=== PATIENT | female | born 1995 | race Caucasian/White ===

== ENCOUNTER 2018-06-25 05:29 | Inpatient (IN) | payer BC, SELFPAY ==
--- NOTE | 2018-06-24 11:59 | PCM.LDHP ---
L&D History of Present Illness - General Date of Service: 06/25/18 Admit Problem/Dx: Admission Diagnosis/Problem Admission Diagnosis/Problem 06/24/18 11:46 Willow is a 22-year-old 3 para 2001 white female at 38-1/7 weeks gestational age on admission for elective repeat section. 06/24/18 11:48 Source of Information: Patient History Limitations: Reports: No Limitations - History of Present Illness Introduction:: Willow is a 22-year-old 3 para 2003 white female at 38-1/7 weeks gestational age on admission for elective repeat section. Previous section 2 was done for failure to progress and then repeat respectively. Has gestational diabetes and has been under less than optimal control. Her seizure repeat section, its risks, benefits, alternatives of care and follow-up were discussed in detail patient. She appears to understand and wishes to proceed. Consent is signed. ROPE WALKER history 3 para 2001 FATUMA 07/07/2018 as set by an early ultrasound done on 12/10/2017. Is supported by 2 other ultrasounds done during on 02/17/2018 and 06/01/2018. course is been relatively unremarkable. Her last menstrual period was unknown. She had menarche at age 10. Frequency of menses is every 2-4 weeks. Not using any control to time conception. Past obstetric history includes the followin. Male born 12/28/2010 at 42 weeks gestational age of 26 hours of labor. 7 lbs. 7 oz.a section for failure to progresschild's name is Ander. He prepped 2. Female infant born 11/04/2001 1239 weeks gestational age 6 lbs. 4 oz.repeat section done electively. Child's name is Catina course. Patient's seen for her first visit on 12/10/2017 at 10-1 /7 weeks gestational age. She was seen on a regular basis throughout the . She had normal fundal height growth. Her weight gain was minimal and patient essentially stayed the same start at 218 pounds and ending at 214 pounds. Fundal height growth was appropriate. Patient had an abnormal one-hour GTT and was diagnosed with gestational diabetes. She was started on glyburide to bring blood sugars down further. She has stopped smoking during the course of desires repeat section. She plans to breast-feed. She has unstable social situation. After testing shows blood to be A+ with a negative amateur screening. Her hemoglobin is 12.8 and platelets 250,000. She is rubella immune. RPR is nonreactive. Hepatitis surface antigen and HIV assays are both negative. Chlamydia and gonorrhea assays both negative. Second trimester labs showed hemoglobin 11.8 g deciliter and platelets 231,000. One-hour GTT was elevated at 136. 3 hour glucose tolerance test showed a blood sugar 98. 100 glucose was 202. To her glucose was 216. 4 hour glucose 166. This gave diagnosis of gestational diabetes. Patient start a diabetic diet and blood sugar evaluation. Blood sugars did not normalize and fasting blood sugars remained elevated. She was then started on glyburide 2.5 mg by mouth every at bedtime. With these patient has had variable results. She is not been consistent but admits that she is not following diet closely. Group B strep screen was positive. Allergies Peanuts which cause hives. Medications: 1. Glyburide 2.5 mg by mouth daily at bedtime 2. Sertraline 50 mg by mouth every day. 3. vitamins daily Past medical history: 1. Allergy to peanuts 2. depression Past surgical history: 1. 2 in 2008 and 2011. 2. Reconstructed eardrum surgery left ear 2014 3. Cholecystectomy 2009 Family history: Mother is alive and well. Father is alive age 50 with heart disease, heart attack and surgery. 3 sisters alive and well. One sister used IVF to conceive. There is no family history of cancer, related issues , bleeding or blood clotting problems. Social history. Patient is single. She works at [employer]. Significant other's [employer]. She does not use any significant most alcohol, drugs or tobacco. She did smoke early in the . Review of systems: In general patient has no complaints. Baby has been active Skin: Negative Lungs: No infectious symptoms or shortness of breath Cardiovascular: No chest pain or exercise intolerance Breasts: No lumps, changes in size, pain, dimpling, discharge or axillary or supraclavicular concerns. GI: Negative : Negative Musculoskeletal: Negative Neurological: Negative In general the patient is well-developed, well-nourished, pleasant female of stated age in no acute distress. Skin is warm dry without lesions. HEENT, neck and back within normal limits. Lungs are clear with good breath sounds in all lung coburn. Cardiovascular exam shows regular and rhythm without murmurs. Abdomen is flat, soft, nontender without masses or organomegaly. Positive bowel sounds are noted. No inguinal lymphadenopathy or hernias are noted. Genital gravid with fundal height consistent with dates. Extremities and neurological exam are grossly within normal limits. - Related Data Allergies/Adverse Reactions: Allergies Allergy/AdvReac Type Severity Reaction Status Date / Time metronidazole Allergy Rash Verified 05/06/16 04:02 Home Medications: Home Meds Prednisone [IMW: predniSONE] 60 mg PO WITHBREAKFAST #15 tab 05/05/16 [Rx] Acetaminophen [Tylenol] 650 mg PO ONCALL PRN 05/06/16 [History] EPINEPHrine [Adrenaclick] 0.3 mg IJ ASDIRECTED PRN #1 pack 05/06/16 [Rx] diphenhydrAMINE [Benadryl] 50 mg PO ONCALL PRN 05/06/16 [History] Past Medical History HEENT History: Reports: Impaired Vision Other HEENT History: wears contacts Gastrointestinal History: Reports: Cholelithiasis Genitourinary History: Reports: UTI, Recurrent ROPE WALKER History: Reports: Endocrine/Metabolic History: Reports: Obesity/BMI 30+ Hematologic History: Reports: Anemia, Iron Deficiency Other Hematologic History: in . - Past Surgical History HEENT Surgical History: Reports: Other (See Below) Female Surgical History: Reports: Section Social & Family History - Caffeine Use Caffeine Use: Reports: Coffee, Energy Drinks, Soda, Tea - Living Situation & Occupation Living situation: Reports: Single, Alone Occupation: Employed H&P Review of Systems - Review of Systems: Review Of Systems: See Below L&D Exam - Exam Exam: See Below Problem List Initiated/Reviewed/Updated: Yes Assessment/Plan Comment:: 1. 38-1/7 week intrauterine , admitted for elective repeat section and 2. Gestational diabetes under less than optimal control 3. Group B strep positive status. 4. RPR nonreactive 5. Patient plans to breast-feed. Plan: 1. Repeat lower uterine segment transverse section through Pfannenstiel skin incisionprocedure, risks, benefits, returns of care and follow-up discussed with the patient in detail. She appears understand and wishes to proceed. All 2. DVT prophylaxis with SCDs 3. Infection prophylaxis with Ancef 2 g IV preop. 4. Routine preoperative labs consistent CBC, type and screen, urinalysis 5. Support breast-feeding.
[~2018-06-25 05:29] MED LIST: Sodium Chloride 0.9% 10 ML Syringe FLUSH PRN
[2018-06-25] MEDS ORDERED: Lactated Ringers 1,000 ML IV SCH (06:00)
[2018-06-25] MEDS ORDERED: Bupivacaine 0.75%/D5W 2 ML Amp ONE (06:20)
[2018-06-25] MEDS ORDERED: Phenylephrine/Normal Saline 100 MCG/ML 10 ML Syringe ONE (06:20)
[2018-06-25] MEDS ORDERED: Ondansetron 4 MG/2 ML SDV ONE (06:20)
[2018-06-25] MEDS ORDERED: Lactated Ringers 2,000 ML ONE (06:20)
[2018-06-25] MEDS ORDERED: Lidocaine 1% 4 ML ONE (06:20)
[2018-06-25] MEDS ORDERED: Oxytocin 10 Units/1 ML SDV ONE (06:20)
[2018-06-25] MEDS ORDERED: ceFAZolin 1 GM Vial ONE (06:20)
[2018-06-25] MEDS ORDERED: Ketorolac 30 MG/ML SDV ONE (06:20)
[2018-06-25] MEDS ORDERED: Morphine PF 10 MG/10 ML SDV ONE (06:21)
[2018-06-25] MEDS ORDERED: Citric Acid/Sodium Citrate Solution 30 ML Cup PO ONE (06:30)
[2018-06-25] MEDS ORDERED: Metoclopramide 10 MG/2 ML SDV IVPUSH ONE (06:30)
[2018-06-25] MEDS ORDERED: ceFAZolin 2 GM in Premix Bag 1 BAG IV ONE (06:30)
--- NOTE | 2018-06-25 06:43 | PCM.PREANE ---
Preanesthetic Assessment - Anesthesia/Transfusion/Family Hx Anesthesia History: Prior Anesthesia Without Reaction Family History of Anesthesia Reaction: No Transfusion History: No Prior Transfusion(s) Intubation History: Unknown - Review of Systems General: No Symptoms Pulmonary: No Symptoms Cardiovascular: No Symptoms Gastrointestinal: No Symptoms (GERD), Constipation Neurological: No Symptoms Other: Reports: Diabetes (Gestational DM: am blood sugar=90), Depression, Anxiety - Physical Assessment NPO Status Date: 06/25/18 NPO Status Time: 02:00 (water) Pulse: 80 O2 Sat by Pulse Oximetry: 98 Respiratory Rate: 16 Blood Pressure: 113/64 Temperature: 36.5 C Vital Signs: Last Vital Signs Temp 36.5 C 06/25/18 05:45 Pulse 80 06/25/18 05:45 Resp 16 06/25/18 05:45 BP 113/64 06/25/18 05:45 Pulse Ox 98 06/25/18 05:45 Height: 1.6 m Weight: 99.201 kg ASA Class: 2 Mental Status: Alert & Oriented x3 Airway Class: Mallampati = 2 Dentition: Reports: Normal Dentition, Caries Thyro-Mental Finger Breadths: 3 Mouth Opening Finger Breadths: 3 ROM/Head Extension: Full Lungs: Clear to Auscultation, Normal Respiratory Effort Cardiovascular: Regular Rate, Regular Rhythm, No Murmurs - Lab Values: Laboratory Last Values WBC 7.68 K/mm3 (3.98-10.04) 06/24/18 14:35 RBC 4.46 M/mm3 (3.98-5.22) 06/24/18 14:35 Hgb 12.6 gm/L (11.2-15.7) 06/24/18 14:35 Hct 38.7 % (34.1-44.9) 06/24/18 14:35 MCV 86.8 fl (79.4-94.8) 06/24/18 14:35 MCH 28.3 pg (25.6-32.2) 06/24/18 14:35 MCHC 32.6 g/dl (32.2-35.5) 06/24/18 14:35 RDW Std Deviation 44.0 fL (36.4-46.3) 06/24/18 14:35 Plt Count 193 K/mm3 (182-369) 06/24/18 14:35 MPV 10.7 fl (9.4-12.3) 06/24/18 14:35 Neut % (Auto) 65.7 % (34.0-71.1) 06/24/18 14:35 Lymph % (Auto) 27.7 % (19.3-51.7) 06/24/18 14:35 Brooks % (Auto) 6.0 % (4.7-12.5) 06/24/18 14:35 Eos % (Auto) 0.4 (0.7-5.8) L 06/24/18 14:35 Baso % (Auto) 0.1 % (0.1-1.2) 06/24/18 14:35 Neut # (Auto) 5.04 K/mm3 (1.56-6.13) 06/24/18 14:35 Lymph # (Auto) 2.13 K/mm3 (1.18-3.74) 06/24/18 14:35 Brooks # (Auto) 0.46 K/mm3 (0.24-0.36) H 06/24/18 14:35 Eos # (Auto) 0.03 K/mm3 (0.04-0.36) L 06/24/18 14:35 Baso # (Auto) 0.01 K/mm3 (0.01-0.08) 06/24/18 14:35 Blood Type A POSITIVE 06/24/18 14:35 Gel Antibody Screen Negative 06/24/18 14:35 - Allergies Allergies/Adverse Reactions: Allergies Allergy/AdvReac Type Severity Reaction Status Date / Time peanut Allergy Hives Verified 06/25/18 00:44 - Anesthesia Plan Pre-Op Medication Ordered: None, Other (bicitra and reglan.) - Acknowledgements Anesthesia Type Planned: Spinal Pt an Appropriate Candidate for the Planned Anesthesia: Yes Alternatives and Risks of Anesthesia Discussed w Pt/Guardian: Yes Pt/Guardian Understands and Agrees with Anesthesia Plan: Yes PreAnesthesia Questionnaire HEENT History: Reports: Impaired Vision Other HEENT History: wears contacts Gastrointestinal History: Reports: GERD Genitourinary History: Reports: UTI, Recurrent BAGGAGE INSPECTOR History: Reports: Psychiatric History: Reports: Anxiety, Depression Endocrine/Metabolic History: Reports: Diabetes, Gestational, Obesity/BMI 30+ Hematologic History: Reports: Anemia, Iron Deficiency Other Hematologic History: in . - Past Surgical History HEENT Surgical History: Reports: Other (See Below) Other HEENT Surgeries/Procedures: left ear drum reconstruction GI Surgical History: Reports: Cholecystectomy Female Surgical History: Reports: Section - SUBSTANCE USE Smoking Status *Q: Current Every Day Smoker Tobacco Use Within Last Twelve Months: Cigarettes Recreational Drug Use History: No - HOME MEDS Home Medications: Home Meds Pnv No.122/Iron/Folic Acid [ Multi Tablet] 1 each PO DAILY 06/25/18 [ History] Sertraline [Zoloft] 50 mg PO DAILY 06/25/18 [History] glyBURIDE [Glyburide] 2.5 mg PO BEDTIME 06/25/18 [History] - CURRENT (IN HOUSE) MEDS Current Meds: Current Medications Cefazolin Sodium/Dextrose 2 gm (/ Premix) 50 mls @ 100 mls/hr IV ONETIME ONE Stop: 06/25/18 06:59 Lactated Ringer's (Ringers, Lactated) 1,000 mls @ 125 mls/hr IV ASDIRECTED [facility] Last Admin: 06/25/18 06:20 Dose: 999 mls/hr Oxytocin/Lactated Ringer's (Pitocin In Lr 10 Units/1,000 Ml) 10 unit in 1,000 mls @ 100 mls/hr IV ASDIRECTED SHMUEL Sodium Chloride (Saline Flush) 10 ml FLUSH ASDIRECTED PRN PRN Reason: Keep Vein Open Discontinued Medications Bupivacaine HCl/Dextrose (Marcaine 0.75% Spinal) Confirm Administered Dose 2 ml .ROUTE .STK-MED ONE Stop: 06/25/18 06:21 Cefazolin Sodium (Ancef) Confirm Administered Dose 2 gm .ROUTE .STK-MED ONE Stop: 06/25/18 06:21 Citric Acid/Sodium Citrate (Bicitra Solution) 30 ml PO ONETIME ONE Stop: 06/25/18 06:31 Lidocaine HCl (Xylocaine-Mpf 1%) Confirm Administered Dose 4 mls @ as directed .ROUTE .STK-MED ONE Stop: 06/25/18 06:21 Lactated Ringer's (Ringers, Lactated) Confirm Administered Dose 2,000 mls @ as directed .ROUTE .STK-MED ONE Stop: 06/25/18 06:21 Ketorolac Tromethamine (Toradol) Confirm Administered Dose 30 mg .ROUTE .STK- MED ONE Stop: 06/25/18 06:21 Metoclopramide HCl (Reglan) 10 mg IVPUSH ONETIME ONE Stop: 06/25/18 06:31 Morphine Sulfate (Duramorph Pf) Confirm Administered Dose 10 mg .ROUTE .STK-MED ONE Stop: 06/25/18 06:22 Ondansetron HCl (Zofran) Confirm Administered Dose 4 mg .ROUTE .STK-MED ONE Stop: 06/25/18 06:21 Oxytocin (Pitocin) Confirm Administered Dose 20 unit .ROUTE .STK-MED ONE Stop: 06/25/18 06:21 Phenylephrine HCl (Phenylephrine In Ns 100 Mcg/Ml) Confirm Administered Dose 1 mg .ROUTE .STK-MED ONE Stop: 06/25/18 06:21
[2018-06-25] MEDS ORDERED: Bupivacaine 0.5% 30 ML SDV ONE (06:54)
[2018-06-25] MEDS ORDERED: Oxytocin/Lactated Ringers 10 UNIT/1,000 ML BAG IV SCH (07:00)
[2018-06-25] MEDS ORDERED: Lactated Ringers 1,000 ML ONE (07:48)
[2018-06-25] MEDS ORDERED: diphenhydrAMINE 50 MG/ML SDV IVPUSH PRN ×2 (07:49→10:15)
[2018-06-25] MEDS ORDERED: Ondansetron 4 MG/2 ML SDV IVPUSH PRN (07:49)
[2018-06-25] MEDS ORDERED: HYDROmorphone 0.5 MG/0.5 ML Syringe IVPUSH PRN (07:49)
[2018-06-25] MEDS ORDERED: Haloperidol Lactate 5 MG/ML SDV IVPUSH PRN (07:49)
[2018-06-25] MEDS ORDERED: fentaNYL 100 MCG/2 ML SDV IVPUSH PRN (07:49)
[2018-06-25] MEDS ORDERED: ePHEDrine 50 MG/ML SDV IVPUSH PRN ×2 (07:49→10:15)
[2018-06-25] MEDS ORDERED: Phenylephrine 1 MG in Sodium Chloride 0.9% 10 ML IV SCH (08:00)
--- NOTE | 2018-06-25 08:52 | PCM.POSTAN ---
POST ANESTHESIA ASSESSMENT - MENTAL STATUS Mental Status: Alert - VITAL SIGNS Pulse Rate: 75 SaO2: 99 Resp Rate: 19 Blood Pressure: 111/52 Temperature: 36.4 C - RESPIRATORY Respiratory Status: Respiratory Rate WNL, Airway Patent, O2 Saturation Stable, Supplemental Oxygen - CARDIOVASCULAR CV Status: Pulse Rate WNL, Blood Pressure Stable - GASTROINTESTINAL GI Status: No Symptoms - POST OP HYDRATION Hydration Status: Adequate & Stable
--- NOTE | 2018-06-25 09:10 | PCM.OPNOTE ---
- General Post-Op/Procedure Note Date of Surgery/Procedure: 06/25/18 Operative Procedure(s): Repeat lower uterine segment transverse section through Pfannenstiel skin incision Findings: Moderate anterior abdominal wall scarring. Omental scarring to the anterior abdominal wall. Ovaries tubes and uterus otherwise unremarkable. Lower uterine segment was very thin at 2-3 mm. Clear amniotic fluid. Baby in a cephalic presentation. Female weighing 6 lbs. 12 oz. with Apgars of 3, 6 and 8. Pre Op Diagnosis: 38 week intrauterine , history of gestational diabetessuboptimally controlled, history of previous section desire for repeat section Post-Op Diagnosis: Same with delivery of viable 6 lbs. 12 oz. female infant with Apgars of 3, 6 and 9 at 0805 hrs. on 06/25/2018 Anesthesia Technique: Spinal Other Anesthesia Type: Marcaine 0.5%20 mL totallocal Primary Surgeon: Tom Hanna Secondary Surgeon: Cirilo Levy Anesthesia Provider: Keiry Griffin Nurse Prn: Isaías Diallo Reason Nurse Prn Was Necessary: Retraction, assistance, patient safety, quality care Role of Nurse Prn: Same Fluid Replacement, Intraop: 1,600 Output, Urine Amount: 275 EBL in mLs: 500 Drain/Tube Comments:: Indwelling bladder catheter Complications: None Condition: Good Free Text/Narrative:: Surgery duration: 45 minutes Procedure: The patient is appropriately consented. Patient was transferred to the room and placed in a sitting position. Spinal anesthesia was administered. After confirmation of adequate anesthesia patient was placed in a supine position with a wedge under her right side to facilitate left lateral positioning. The patient was prepped and draped in usual fashion after Garcia catheter was already placed . The anesthetic was checked and found to be adequate. 20 mL of Marcaine 0.5% was injected locally in the Pfannenstiel incision site. The Pfannenstiel skin incision was then made and carried down through skin, subcutaneous and fascial layers. The fascia was then undermined superiorly and inferiorly to allow for adequate operating room. The recti muscles midline and preperitoneal fat was bluntly dissected. Peritoneal cavity was entered longitudinally. patient is noted to have omental adhesions to the anterior abdominal wall. There is taken down with clamping, cutting and free tie ligation. The vesicouterine peritoneum was then incised transversely and bladder flap was developed. Myometrium was incised transversely to the level of the amniotic sac. This incision was extended bilaterally in a blunt fashion. The amniotic sac was then ruptured resulting in clear amniotic fluid. A hand is placed in the low uterine segment and the baby' s head was brought forth through the incision. The baby was completely delivered using fundal pressure in a routine fashion. macular extraction assistance with a Kiwi vacuum extractor was used to facilitate delivery of the baby's head. The nose and mouth were bulb suctioned. Baby's cord was clamped x2 cut and baby was handed off to attending reinforcing steel placer Cora . Placenta was expressed after cord blood was obtained. Uterus was then exteriorized to allow for easier closure. The cervix was assessed and found to be dilated adequately to allow egress of blood. The uterus was closed in 2 layers. The first layer a running locked suture of 0 Monocryl, the second layer a running locked vertical mattress suture of 0 Monocryl. [id number] suture was placed at mid incision to control 1 bleeder. Hemostasis confirmed at this time. Sponge instrument needle counts are correct. The uterus was returned to the abdominal cavity and lateral gutters were cleared of blood. Once again sponge needle counts are correct. The anterior abdominal wall was closed with a #1 PDS suture from angle to angle. The subcutaneous area was found to be free of any bleeders. Skin was closed with a running subcuticular stitch of 3-0 Monocryl in a vertical mattress suture fashion using a Abhishek needle. Prineo mesh/glue was then applied to further approximate the incision. It should be noted that patient received 2 g of Ancef preoperatively for infection prophylaxis and had Pitocin infused after delivery of the placenta to facilitate uterine contraction. She also had sequential compression stockings in place for DVT prophylaxis. Patient was discharged from the operating room in satisfactory condition.
[2018-06-25] MEDS ORDERED: Dextrose 5%-Lactated Ringers 1,000 ML IV SCH (10:15)
[2018-06-25] MEDS ORDERED: Naloxone 0.4 MG/ML SDV IVPUSH PRN (10:15)
[2018-06-25] MEDS ORDERED: Lanolin 100% Cream 7 GM Tube TOP PRN (10:15)
[2018-06-25] MEDS ORDERED: Ondansetron 4 MG/2 ML SDV IV PRN (10:15)
[2018-06-25] MEDS: Sertraline 50 MG Tab PO SCH (11:23)
[2018-06-25] MEDS: Ibuprofen 800 MG Tab PO SCH ×2 (12:10→20:27)
[2018-06-25] MEDS: Acetaminophen/oxyCODONE 325-5 MG Tab PO PRN (14:36)
[2018-06-26] MEDS: Ibuprofen 800 MG Tab PO SCH ×3 (04:14→20:15)
--- NOTE | 2018-06-26 08:12 | PCM.PNPP ---
- General Info Date of Service: 06/26/18 Subjective Update: POD1 from [facility]. Doing well. Ambulating, voiding and tolerating po's. Minimal lochia. Functional Status: Reports: Pain Controlled - Review of Systems General: Reports: No Symptoms HEENT: Reports: No Symptoms Pulmonary: Reports: No Symptoms Cardiovascular: Reports: No Symptoms Gastrointestinal: Reports: No Symptoms Genitourinary: Reports: No Symptoms Musculoskeletal: Reports: No Symptoms Skin: Reports: No Symptoms Neurological: Reports: No Symptoms Psychiatric: Reports: No Symptoms - General Info Date of Service: 06/26/18 - Patient Data Vital Signs - Most Recent: Last Vital Signs Temp 36.2 C 06/26/18 04:13 Pulse 89 06/26/18 04:13 Resp 20 06/26/18 07:00 BP 111/66 06/26/18 04:13 Pulse Ox 99 06/26/18 07:00 Weight - Most Recent: 99.201 kg I&O - Last 24 Hours: Intake & Output 06/25/18 06/26/18 06/26/18 22:59 06:59 14:59 Output Total 1525 800 Balance -1525 -800 Lab Results - Last 24 Hours: Laboratory Results - last 24 hr 06/24/18 06/25/18 06/26/18 Range/Units 14:35 09:02 06:00 WBC 7.42 (3.98-10.04) K/mm3 RBC 3.82 L (3.98-5.22) M/mm3 Hgb 10.7 L (11.2-15.7) gm/L Hct 33.4 L (34.1-44.9) % MCV 87.4 (79.4-94.8) fl MCH 28.0 (25.6-32.2) pg MCHC 32.0 L (32.2-35.5) g/dl RDW Std Deviation 44.1 (36.4-46.3) fL Plt Count 167 L (182-369) K/mm3 MPV 10.7 (9.4-12.3) fl Neut % (Auto) 72.0 H (34.0-71.1) % Lymph % (Auto) 18.9 L (19.3-51.7) % [place] % (Auto) 8.5 (4.7-12.5) % Eos % (Auto) 0.4 L (0.7-5.8) Baso % (Auto) 0.1 (0.1-1.2) % Neut # (Auto) 5.34 (1.56-6.13) K/mm3 Lymph # (Auto) 1.40 (1.18-3.74) K/mm3 [place] # (Auto) 0.63 H (0.24-0.36) K/mm3 Eos # (Auto) 0.03 L (0.04-0.36) K/mm3 Baso # (Auto) 0.01 (0.01-0.08) K/mm3 POC Glucose 94 (70-105) mg/dL RPR Non-reactive (NONREACTIVE) Med Orders - Current: Current Medications Diphenhydramine HCl (Benadryl) 25 mg IVPUSH Q6H PRN PRN Reason: Itching or Nausea Docusate Sodium (Colace) 100 mg PO Q12H PRN PRN Reason: Constipation Emollient Ointment (Lansinoh Hpa) 0 gm TOP ASDIRECTED PRN PRN Reason: Sore Nipples Ephedrine Sulfate (Ephedrine Sulfate) 5 mg IVPUSH SEECOMMENT PRN PRN Reason: Other Ibuprofen (Motrin) 800 mg PO Q8H [facility] Last Admin: 06/26/18 04:14 Dose: 800 mg Naloxone HCl (Narcan) 0.1 mg IVPUSH SEECOMMENT PRN PRN Reason: Respiratory Depression Ondansetron HCl (Zofran) 4 mg IV Q4H PRN PRN Reason: Nausea/Vomiting Oxycodone/Acetaminophen (Percocet 325-5 Mg) 2 tab PO Q4H PRN PRN Reason: Pain (moderate 4-6) Last Admin: 06/25/18 14:36 Dose: 2 tab Sertraline HCl (Zoloft) 50 mg PO DAILY [facility] Last Admin: 06/25/18 11:23 Dose: Not Given Discontinued Medications Bupivacaine HCl (Marcaine 0.5%) Confirm Administered Dose 30 ml .ROUTE .STK-MED ONE Stop: 06/25/18 06:55 Last Admin: 06/25/18 07:55 Dose: 20 ml Bupivacaine HCl/Dextrose (Marcaine 0.75% Spinal) Confirm Administered Dose 2 ml .ROUTE .STK-MED ONE Stop: 06/25/18 06:21 Cefazolin Sodium (Ancef) Confirm Administered Dose 2 gm .ROUTE .STK-MED ONE Stop: 06/25/18 06:21 Citric Acid/Sodium Citrate (Bicitra Solution) 30 ml PO ONETIME ONE Stop: 06/25/18 06:31 Last Admin: 06/25/18 06:54 Dose: 30 ml Diphenhydramine HCl (Benadryl) 25 mg IVPUSH Q6H PRN PRN Reason: pruritis Stop: 06/25/18 11:00 Ephedrine Sulfate (Ephedrine Sulfate) 5 mg IVPUSH ASDIRECTED PRN PRN Reason: Hypotension Stop: 06/25/18 11:00 Fentanyl (Sublimaze) 50 mcg IVPUSH Q5M PRN PRN Reason: Pain Stop: 06/25/18 11:00 Haloperidol Lactate (Haldol) 1 mg IVPUSH ONETIME PRN PRN Reason: PERSISTENT NAUSEA Stop: 06/25/18 11:00 Hydromorphone HCl (Dilaudid) 0.5 mg IVPUSH Q15M PRN PRN Reason: Pain (severe 7-10) Stop: 06/25/18 11:00 Cefazolin Sodium/Dextrose 2 gm (/ Premix) 50 mls @ 100 mls/hr IV ONETIME ONE Stop: 06/25/18 06:59 Last Admin: 06/25/18 17:38 Dose: Not Given Lactated Ringer's (Ringers, Lactated) 1,000 mls @ 125 mls/hr IV ASDIRECTED [facility] Last Admin: 06/25/18 06:20 Dose: 999 mls/hr Oxytocin/Lactated Ringer's (Pitocin In Lr 10 Units/1,000 Ml) 10 unit in 1,000 mls @ 100 mls/hr IV ASDIRECTED [facility] Lidocaine HCl (Xylocaine-Mpf 1%) Confirm Administered Dose 4 mls @ as directed .ROUTE .STK-MED ONE Stop: 06/25/18 06:21 Lactated Ringer's (Ringers, Lactated) Confirm Administered Dose 2,000 mls @ as directed .ROUTE .STK-MED ONE Stop: 06/25/18 06:21 Lactated Ringer's (Ringers, Lactated) Confirm Administered Dose 1,000 mls @ as directed .ROUTE .STK-MED ONE Stop: 06/25/18 07:49 Phenylephrine HCl 1 mg/ Sodium (Chloride) 10.1 mls @ 1 mls/sec IV TITRATE SHMUEL; Protocol Stop: 06/25/18 11:00 Dextrose/Lactated Ringer's (Dextrose 5%-Lactated Ringers) 1,000 mls @ 125 mls/ hr IV ASDIRECTED SHMUEL Stop: 06/25/18 18:14 Ketorolac Tromethamine (Toradol) Confirm Administered Dose 30 mg .ROUTE .STK- MED ONE Stop: 06/25/18 06:21 Metoclopramide HCl (Reglan) 10 mg IVPUSH ONETIME ONE Stop: 06/25/18 06:31 Last Admin: 06/25/18 06:54 Dose: 10 mg Morphine Sulfate (Duramorph Pf) Confirm Administered Dose 10 mg .ROUTE .STK-MED ONE Stop: 06/25/18 06:22 Ondansetron HCl (Zofran) Confirm Administered Dose 4 mg .ROUTE .STK-MED ONE Stop: 06/25/18 06:21 Ondansetron HCl (Zofran) 4 mg IVPUSH ONETIME PRN PRN Reason: Nausea/Vomiting Stop: 06/25/18 11:00 Oxytocin (Pitocin) Confirm Administered Dose 20 unit .ROUTE .STK-MED ONE Stop: 06/25/18 06:21 Phenylephrine HCl (Phenylephrine In Ns 100 Mcg/Ml) Confirm Administered Dose 1 mg .ROUTE .STK-MED ONE Stop: 06/25/18 06:21 Sodium Chloride (Saline Flush) 10 ml FLUSH ASDIRECTED PRN PRN Reason: Keep Vein Open - Interaction Infant Disposition, : in Room with Family Support Person: Sister - Recovery Exam Fundal Tone: Firm Fundal Level: At Umbilicus Fundal Placement: Midline Lochia Amount: Small Lochia Color: Rubra/Red Perineum Description: Intact, Minimal Bruising/Swelling Episiotomy/Laceration: None Bladder Status: Indwelling Catheter in Place Urinary Elimination: Indwelling Catheter - Exam General: Alert, Oriented HEENT: Pupils Equal Neck: Supple Lungs: Clear to Auscultation, Normal Respiratory Effort Cardiovascular: Regular Rate, Regular Rhythm GI/Abdominal Exam: Normal Bowel Sounds, Soft, Non-Tender, No Organomegaly, No Distention, No Abnormal Bruit, No Mass, Pelvis Stable Extremities: Normal Inspection, Normal Range of Motion, Non-Tender, No Pedal Edema, Normal Capillary Refill Neurological: No New Focal Deficit Psy/Mental Status: Alert, Normal Affect, Normal Mood - Problem List Review Problem List Initiated/Reviewed/Updated: Yes - Plan Plan:: 1. 38-1/7 week intrauterine , s/p elective repeat section with 2. Gestational diabetes under less than optimal control 3. Group B strep positive status. 4. RPR nonreactive 5. Patient plans to breast-feed. Plan: 1. Routine postop care 2. Discussed 2 hour glucola at 6 weeks 3. CBC appropriate 4. Routine postoperative care 5. Support breast-feeding.
[2018-06-26] MEDS: Docusate Sodium 100 MG Cap PO PRN (09:30)
[2018-06-26] MEDS: Sertraline 50 MG Tab PO SCH (09:30)
--- NOTE | 2018-06-26 09:59 | PCM48HPAN ---
Post Anesthesia Note - EVALUATION WITHIN 48HRS OF ANESTHETIC Vital Signs in Normal Range: Yes Patient Participated in Evaluation: Yes Respiratory Function Stable: Yes Airway Patent: Yes Cardiovascular Function Stable: Yes Hydration Status Stable: Yes Pain Control Satisfactory: Yes Nausea and Vomiting Control Satisfactory: Yes Mental Status Recovered: Yes Pulse Rate: 89 Resp Rate: 20 Temperature: 36.2 C Blood Pressure: 111/66 - COMMENTS/OBSERVATIONS Free Text/Narrative:: no anesthesia complications noted
[2018-06-26] MEDS: Acetaminophen/oxyCODONE 325-5 MG Tab PO PRN ×3 (10:07→20:22)
--- NOTE | 2018-06-27 04:47 | PCM.DCSUM1 ---
Discharge Summary - Hospital Course Brief History: omi is a 22-year-old 3 para 2004 white female at 38-1/ 7 weeks gestational age on admission for elective repeat section. Previous section 2 was done for failure to progress and then repeat respectively. Has gestational diabetes and has been under less than optimal control. Admitted for repeat section Diagnosis: Stroke: No - Discharge Data Discharge Date: 06/27/18 Discharge Disposition: Home, Self-Care 01 Condition: Good - Patient Summary/Data Operative Procedure(s) Performed: Repeat lower uterine segment transverse section through Pfannenstiel skin incision Hospital Course: Repeat c/s. Uncomplicated pp course. viable 6 lbs. 12 oz. female infant with Apgars of 3, 6 and 9 at 0805 hrs. on 06/25/2018 - Patient Instructions Diet: Usual Diet as Tolerated Activity: No Strenuous Activities Driving: Do Not Drive Showering/Bathing: May Shower Wound/Incision Care: Keep Operative Site/Wound Site Clean and Dry Notify Provider of: Fever, Increased Pain, Swelling and Redness, Drainage, Nausea and/or Vomiting - Discharge Plan *PRESCRIPTION DRUG MONITORING PROGRAM REVIEWED*: No *COPY OF PRESCRIPTION DRUG MONITORING REPORT IN PATIENT SHAISTA: Not Applicable Home Medications: Home Meds Pnv No.122/Iron/Folic Acid [ Multi Tablet] 1 each PO DAILY 06/25/18 [ History] Sertraline [Zoloft] 50 mg PO DAILY 06/25/18 [History] glyBURIDE [Glyburide] 2.5 mg PO BEDTIME 06/25/18 [History] Referrals: Tom Hanna MD [Primary Care Provider] - (2 weeks) - Discharge Summary/Plan Comment DC Time >30 min.: No - General Info Date of Service: 06/27/18 Subjective Update: Doing well, expressed desire for discharge on POD2 - Review of Systems General: Reports: No Symptoms HEENT: Reports: No Symptoms Pulmonary: Reports: No Symptoms Cardiovascular: Reports: No Symptoms Gastrointestinal: Reports: No Symptoms Genitourinary: Reports: No Symptoms Musculoskeletal: Reports: No Symptoms Skin: Reports: No Symptoms Neurological: Reports: No Symptoms Psychiatric: Reports: No Symptoms - Patient Data Vitals - Most Recent: Last Vital Signs Temp 37.1 C 06/27/18 02:16 Pulse 64 06/27/18 02:16 Resp 16 06/27/18 02:16 BP 113/81 06/27/18 02:16 Pulse Ox 98 06/27/18 02:16 Weight - Most Recent: 99.201 kg I&O - Last 24 hours: Intake & Output 06/26/18 06/26/18 06/27/18 14:59 22:59 06:59 Intake Total 300 850 850 Output Total 700 650 Balance -400 200 850 Lab Results - Last 24 hrs: Laboratory Results - last 24 hr 06/26/18 Range/Units 06:00 WBC 7.42 (3.98-10.04) K/mm3 RBC 3.82 L (3.98-5.22) M/mm3 Hgb 10.7 L (11.2-15.7) gm/L Hct 33.4 L (34.1-44.9) % MCV 87.4 (79.4-94.8) fl MCH 28.0 (25.6-32.2) pg MCHC 32.0 L (32.2-35.5) g/dl RDW Std Deviation 44.1 (36.4-46.3) fL Plt Count 167 L (182-369) K/mm3 MPV 10.7 (9.4-12.3) fl Neut % (Auto) 72.0 H (34.0-71.1) % Lymph % (Auto) 18.9 L (19.3-51.7) % [place] % (Auto) 8.5 (4.7-12.5) % Eos % (Auto) 0.4 L (0.7-5.8) Baso % (Auto) 0.1 (0.1-1.2) % Neut # (Auto) 5.34 (1.56-6.13) K/mm3 Lymph # (Auto) 1.40 (1.18-3.74) K/mm3 [place] # (Auto) 0.63 H (0.24-0.36) K/mm3 Eos # (Auto) 0.03 L (0.04-0.36) K/mm3 Baso # (Auto) 0.01 (0.01-0.08) K/mm3 Med Orders - Current: Current Medications Diphenhydramine HCl (Benadryl) 25 mg IVPUSH Q6H PRN PRN Reason: Itching or Nausea Docusate Sodium (Colace) 100 mg PO Q12H PRN PRN Reason: Constipation Last Admin: 06/26/18 09:30 Dose: 100 mg Emollient Ointment (Lansinoh Hpa) 0 gm TOP ASDIRECTED PRN PRN Reason: Sore Nipples Ephedrine Sulfate (Ephedrine Sulfate) 5 mg IVPUSH SEECOMMENT PRN PRN Reason: Other Ibuprofen (Motrin) 800 mg PO Q8H [facility] Last Admin: 06/26/18 20:15 Dose: 800 mg Naloxone HCl (Narcan) 0.1 mg IVPUSH SEECOMMENT PRN PRN Reason: Respiratory Depression Ondansetron HCl (Zofran) 4 mg IV Q4H PRN PRN Reason: Nausea/Vomiting Oxycodone/Acetaminophen (Percocet 325-5 Mg) 2 tab PO Q4H PRN PRN Reason: Pain (moderate 4-6) Last Admin: 06/26/18 20:22 Dose: 2 tab Sertraline HCl (Zoloft) 50 mg PO DAILY [facility] Last Admin: 06/26/18 09:30 Dose: 50 mg Discontinued Medications Bupivacaine HCl (Marcaine 0.5%) Confirm Administered Dose 30 ml .ROUTE .STK-MED ONE Stop: 06/25/18 06:55 Last Admin: 06/25/18 07:55 Dose: 20 ml Bupivacaine HCl/Dextrose (Marcaine 0.75% Spinal) Confirm Administered Dose 2 ml .ROUTE .STK-MED ONE Stop: 06/25/18 06:21 Cefazolin Sodium (Ancef) Confirm Administered Dose 2 gm .ROUTE .STK-MED ONE Stop: 06/25/18 06:21 Citric Acid/Sodium Citrate (Bicitra Solution) 30 ml PO ONETIME ONE Stop: 06/25/18 06:31 Last Admin: 06/25/18 06:54 Dose: 30 ml Diphenhydramine HCl (Benadryl) 25 mg IVPUSH Q6H PRN PRN Reason: pruritis Stop: 06/25/18 11:00 Ephedrine Sulfate (Ephedrine Sulfate) 5 mg IVPUSH ASDIRECTED PRN PRN Reason: Hypotension Stop: 06/25/18 11:00 Fentanyl (Sublimaze) 50 mcg IVPUSH Q5M PRN PRN Reason: Pain Stop: 06/25/18 11:00 Haloperidol Lactate (Haldol) 1 mg IVPUSH ONETIME PRN PRN Reason: PERSISTENT NAUSEA Stop: 06/25/18 11:00 Hydromorphone HCl (Dilaudid) 0.5 mg IVPUSH Q15M PRN PRN Reason: Pain (severe 7-10) Stop: 06/25/18 11:00 Cefazolin Sodium/Dextrose 2 gm (/ Premix) 50 mls @ 100 mls/hr IV ONETIME ONE Stop: 06/25/18 06:59 Last Admin: 06/25/18 17:38 Dose: Not Given Lactated Ringer's (Ringers, Lactated) 1,000 mls @ 125 mls/hr IV ASDIRECTED [facility] Last Admin: 06/25/18 06:20 Dose: 999 mls/hr Oxytocin/Lactated Ringer's (Pitocin In Lr 10 Units/1,000 Ml) 10 unit in 1,000 mls @ 100 mls/hr IV ASDIRECTED [facility] Lidocaine HCl (Xylocaine-Mpf 1%) Confirm Administered Dose 4 mls @ as directed .ROUTE .STK-MED ONE Stop: 06/25/18 06:21 Lactated Ringer's (Ringers, Lactated) Confirm Administered Dose 2,000 mls @ as directed .ROUTE .STK-MED ONE Stop: 06/25/18 06:21 Lactated Ringer's (Ringers, Lactated) Confirm Administered Dose 1,000 mls @ as directed .ROUTE .STK-MED ONE Stop: 06/25/18 07:49 Phenylephrine HCl 1 mg/ Sodium (Chloride) 10.1 mls @ 1 mls/sec IV TITRATE SHMUEL; Protocol Stop: 06/25/18 11:00 Dextrose/Lactated Ringer's (Dextrose 5%-Lactated Ringers) 1,000 mls @ 125 mls/ hr IV ASDIRECTED SHMU[facility] Stop: 06/25/18 18:14 Ketorolac Tromethamine (Toradol) Confirm Administered Dose 30 mg .ROUTE .STK- MED ONE Stop: 06/25/18 06:21 Metoclopramide HCl (Reglan) 10 mg IVPUSH ONETIME ONE Stop: 06/25/18 06:31 Last Admin: 06/25/18 06:54 Dose: 10 mg Morphine Sulfate (Duramorph Pf) Confirm Administered Dose 10 mg .ROUTE .STK-MED ONE Stop: 06/25/18 06:22 Ondansetron HCl (Zofran) Confirm Administered Dose 4 mg .ROUTE .STK-MED ONE Stop: 06/25/18 06:21 Ondansetron HCl (Zofran) 4 mg IVPUSH ONETIME PRN PRN Reason: Nausea/Vomiting Stop: 06/25/18 11:00 Oxytocin (Pitocin) Confirm Administered Dose 20 unit .ROUTE .STK-MED ONE Stop: 06/25/18 06:21 Phenylephrine HCl (Phenylephrine In Ns 100 Mcg/Ml) Confirm Administered Dose 1 mg .ROUTE .STK-MED ONE Stop: 06/25/18 06:21 Sodium Chloride (Saline Flush) 10 ml FLUSH ASDIRECTED PRN PRN Reason: Keep Vein Open - Exam General: Reports: Alert, Oriented HEENT: Reports: Pupils Equal, Pupils Reactive, EOMI, Mucous Membr. Moist/[place] Neck: Reports: Supple Lungs: Reports: Clear to Auscultation, Normal Respiratory Effort Cardiovascular: Reports: Regular Rate, Regular Rhythm GI/Abdominal Exam: Normal Bowel Sounds, Soft, Non-Tender, No Organomegaly, No Distention, No Abnormal Bruit, No Mass, Pelvis Stable Back Exam: Reports: Normal Inspection, Full Range of Motion Extremities: Normal Inspection, Normal Range of Motion, Non-Tender, No Pedal Edema, Normal Capillary Refill Skin: Reports: Warm, Dry, Intact Wound/Incisions: Reports: Healing Well Neurological: Reports: No New Focal Deficit Psy/Mental Status: Reports: Alert, Normal Affect, Normal Mood
[2018-06-27] MEDS: Ibuprofen 800 MG Tab PO SCH ×2 (06:31→10:53)
[2018-06-27] MEDS: Acetaminophen/oxyCODONE 325-5 MG Tab PO PRN (08:38)
[2018-06-27] MEDS: Sertraline 50 MG Tab PO SCH (08:41)
[2018-06-27] MEDS: Docusate Sodium 100 MG Cap PO PRN (10:53)
[2018-06-27 10:57] VITALS: BP 131/85
== END 2018-06-27 11:15 | disposition home or self-care (01) | DRG 540 ==
LOC: JD.OB 05:29
PROVIDERS: ADMIT Obstetrics & Gynecology; ATTEND Obstetrics & Gynecology
PROC: 10D00Z1 Extraction of Products of Conception, Low, Open Approach (ICD-10-PCS; principal; 2018-06-25)
PROC: 6A550ZT Pheresis of Cord Blood Stem Cells, Single (ICD-10-PCS; principal; 2018-06-25)
DX: O34.211 Maternal care for low transverse scar from previous cesarean delivery (principal); N85.8 Other specified noninflammatory disorders of uterus; Z37.0 Single live birth; Z3A.38 38 weeks gestation of pregnancy; O24.425 Gestational diabetes mellitus in childbirth, controlled by oral hypoglycemic drugs; O99.824 Streptococcus B carrier state complicating childbirth; O99.214 Obesity complicating childbirth; E66.9 Obesity, unspecified; O99.02 Anemia complicating childbirth; D50.9 Iron deficiency anemia, unspecified; O99.344 Other mental disorders complicating childbirth; F41.8 Other specified anxiety disorders; O99.62 Diseases of the digestive system complicating childbirth; K21.9 Gastro-esophageal reflux disease without esophagitis; K59.00 Constipation, unspecified; O99.334 Smoking (tobacco) complicating childbirth; F17.210 Nicotine dependence, cigarettes, uncomplicated; Z88.0 Allergy status to penicillin; Z88.1 Allergy status to other antibiotic agents; Z90.49 Acquired absence of other specified parts of digestive tract; Z87.440 Personal history of urinary (tract) infections; Z79.899 Other long term (current) drug therapy
CPT/HCPCS: 36415; 59025; 82962; 85025; 86592; 86850; 86900; 86901; 94762; A9270-GY; J0690; J1885; J2001; J2270; J2370; J2405; J2590; J2765; J3490; J7120

== ENCOUNTER 2019-03-23 08:43 | Day surgery (SDC) | payer BC ==
[~2019-03-23 08:43] MED LIST changes: +Lactated Ringers 1,000 ML IV SCH; +Lidocaine 1% 4 ML ONE; +Lidocaine 1%/Sod Bicarbonate in NS 8.4% 1 ML Syringe IDERM PRN; +Midazolam 1 MG/ML 2 ML SDV ONE; +Propofol 200 MG/20 ML SDV ONE; +Rocuronium 100 MG/10 ML MDV ONE; +fentaNYL 250 MCG/5 ML SDV ONE
--- NOTE | 2019-03-23 09:06 | PCM.PREANE ---
Preanesthetic Assessment - Anesthesia/Transfusion/Family Hx Anesthesia History: Prior Anesthesia Reaction Type of Anesthesia Reaction: Excessive Nausea/Vomiting (with spinal anesthesia) Family History of Anesthesia Reaction: No Transfusion History: No Prior Transfusion(s) Intubation History: Unknown - Review of Systems General: No Symptoms Pulmonary: No Symptoms (smoker: 5 pack yr smoking history(1/2 ppd times 14 years )/History of ETOH abuse-occasionally whiskey's 2/week.), Cough Cardiovascular: No Symptoms Gastrointestinal: No Symptoms Neurological: Dizziness (related to allergies per patient) Other: Reports: Easy Bruising, Sinus Problem (allergic rhinitis), Neck Pain ( sore neck noted since chicken pox vaccine on 03/16/2019), Depression, Anxiety - Physical Assessment NPO Status Date: 03/22/19 NPO Status Time: 21:00 Vital Signs: HR: 93 Sat: 98% Resp: 17 BP: 121/65 Temp: 97.9 Height: 1.6 m Weight: 97 kg ASA Class: 2 Mental Status: Alert & Oriented x3 Airway Class: Mallampati = 2 Dentition: Reports: Normal Dentition Thyro-Mental Finger Breadths: 3 Mouth Opening Finger Breadths: 3 ROM/Head Extension: Full Lungs: Clear to Auscultation, Normal Respiratory Effort Cardiovascular: Regular Rate, Regular Rhythm, No Murmurs - Lab Values: Laboratory Last Values WBC 9.85 K/mm3 (3.98-10.04) 03/21/19 09:27 RBC 4.35 M/mm3 (3.98-5.22) 03/21/19 09:27 Hgb 12.1 gm/dl (11.2-15.7) D 03/21/19 09:27 Hct 38.2 % (34.1-44.9) 03/21/19 09:27 MCV 87.8 fl (79.4-94.8) 03/21/19 09:27 MCH 27.8 pg (25.6-32.2) 03/21/19 09:27 MCHC 31.7 g/dl (32.2-35.5) L 03/21/19 09:27 RDW Std Deviation 47.9 fL (36.4-46.3) H 03/21/19 09:27 Plt Count 343 K/mm3 (182-369) 03/21/19 09:27 MPV 10.7 fl (9.4-12.3) 03/21/19 09:27 Neut % (Auto) 66.2 % (34.0-71.1) 03/21/19 09:27 Lymph % (Auto) 26.0 % (19.3-51.7) 03/21/19 09:27 [place] % (Auto) 6.0 % (4.7-12.5) 03/21/19 09:27 Eos % (Auto) 1.2 (0.7-5.8) 03/21/19 09:27 Baso % (Auto) 0.4 % (0.1-1.2) 03/21/19 09:27 Neut # (Auto) 6.52 K/mm3 (1.56-6.13) H 03/21/19 09:27 Lymph # (Auto) 2.56 K/mm3 (1.18-3.74) 03/21/19 09:27 [place] # (Auto) 0.59 K/mm3 (0.24-0.36) H 03/21/19 09:27 Eos # (Auto) 0.12 K/mm3 (0.04-0.36) 03/21/19 09:27 Baso # (Auto) 0.04 K/mm3 (0.01-0.08) 03/21/19 09:27 Sodium 142 mEq/L (136-145) 03/21/19 09:27 Potassium 4.0 mEq/L (3.5-5.1) 03/21/19 09:27 Chloride 106 mEq/L (98-107) 03/21/19 09:27 Carbon Dioxide 25 mEq/L (21-32) 03/21/19 09:27 Anion Gap 15.0 (5-15) 03/21/19 09:27 BUN 12 mg/dL (7-18) 03/21/19 09:27 Creatinine 0.7 mg/dL (0.55-1.02) 03/21/19 09:27 Est Cr Clr Drug Dosing TNP 03/21/19 09:27 Estimated GFR (MDRD) > 60 mL/min (>60) 03/21/19 09:27 BUN/Creatinine Ratio 17.1 (14-18) 03/21/19 09:27 Glucose 118 mg/dL (74-106) H 03/21/19 09:27 Calcium 8.6 mg/dL (8.5-10.1) 03/21/19 09:27 Total Bilirubin 0.3 mg/dL (0.2-1.0) 03/21/19 09:27 AST 14 U/L (15-37) L 03/21/19 09:27 ALT 24 U/L (14-59) 03/21/19 09:27 Alkaline Phosphatase 49 U/L (46-116) 03/21/19 09:27 Total Protein 7.4 g/dl (6.4-8.2) 03/21/19 09:27 Albumin 3.7 g/dl (3.4-5.0) 03/21/19 09:27 Globulin 3.7 gm/dL 03/21/19 09:27 Albumin/Globulin Ratio 1.0 (1-2) 03/21/19 09:27 Above labs reviewed and noted and within acceptable ranges to proceed with scheduled procedure. - Allergies Allergies/Adverse Reactions: Allergies Allergy/AdvReac Type Severity Reaction Status Date / Time cat dander Allergy Cannot Verified 03/22/19 17:02 Remember grass pollen Allergy Cannot Verified 03/22/19 17:02 Remember mold Allergy Cannot Verified 03/22/19 17:02 Remember Penicillins Allergy Cannot Verified 03/22/19 17:02 Remember - Anesthesia Plan Pre-Op Medication Ordered: None - Acknowledgements Anesthesia Type Planned: General Anesthesia Pt an Appropriate Candidate for the Planned Anesthesia: Yes Alternatives and Risks of Anesthesia Discussed w Pt/Guardian: Yes Pt/Guardian Understands and Agrees with Anesthesia Plan: Yes PreAnesthesia Questionnaire HEENT History: Reports: Allergic Rhinitis, Impaired Vision Other HEENT History: wears contacts, pharyngitis, sore throat, otitis media, left hearing loss, left tympanic membrane rupture Cardiovascular History: Reports: None Respiratory History: Reports: None Gastrointestinal History: Reports: GERD Genitourinary History: Reports: STD, UTI, Recurrent Other Genitourinary History: chlamydia PATIENT INSURANCE CLERK History: Reports: , Other (See Below) Other OB/BYN History: abnormal uterine bleeding, dysmenorrhea, menorrhagia, gardnerella vaginitis, uterine leiomyoma, pelvic pain Musculoskeletal History: Reports: Other (See Below) Other Musculoskeletal History: left de quervains tenosynovitis Neurological History: Reports: Other (See Below) Other Neuro History: dizziness Psychiatric History: Reports: Anxiety, Depression Endocrine/Metabolic History: Reports: Diabetes, Gestational, Obesity/BMI 30+ Hematologic History: Reports: Anemia, Iron Deficiency Other Hematologic History: in . Immunologic History: Reports: None Oncologic (Cancer) History: Reports: None Dermatologic History: Reports: Other (See Below) Other Dermatologic History: rash, skin lesion - Past Surgical History Head Surgeries/Procedures: Reports: None HEENT Surgical History: Reports: Other (See Below) Other HEENT Surgeries/Procedures: left ear drum reconstruction Cardiovascular Surgical History: Reports: None Respiratory Surgical History: Reports: None GI Surgical History: Reports: Cholecystectomy Female Surgical History: Reports: Section Endocrine Surgical History: Reports: None Neurological Surgical History: Reports: None Musculoskeletal Surgical History: Reports: None Dermatological Surgical History: Reports: None - SUBSTANCE USE Smoking Status *Q: Current Every Day Smoker Recreational Drug Use History: No - HOME MEDS Home Medications: Home Meds Cetirizine HCl [Zyrtec] 10 mg PO DAILY 03/22/19 [History] Fluticasone Propionate [Flonase] 1 dose NASBOTH BID PRN 03/22/19 [History] Naproxen 500 mg PO BID 03/22/19 [History] Sertraline HCl [Zoloft] 100 mg PO DAILY 03/22/19 [History] buPROPion HCl [Wellbutrin Xl] 300 mg PO DAILY 03/22/19 [History] - CURRENT (IN HOUSE) MEDS Current Meds: Current Medications Lactated Ringer's (Ringers, Lactated) 1,000 mls @ 125 mls/hr IV ASDIRECTED [facility] Stop: 03/23/19 23:00 Lidocaine/Sodium Bicarbonate (Buffered Lidocaine 1% In Ns 8.4%) 0.25 ml IDERM ONETIME PRN PRN Reason: Prior to IV Start Stop: 03/23/19 18:00 Sodium Chloride (Saline Flush) 10 ml FLUSH ASDIRECTED PRN PRN Reason: Keep Vein Open Stop: 03/23/19 18:00 Discontinued Medications Fentanyl (Sublimaze) Confirm Administered Dose 250 mcg .ROUTE .STK-MED ONE Stop: 03/23/19 08:25 Lactated Ringer's (Ringers, Lactated) 1,000 mls @ 125 mls/hr IV ASDIRECTED [facility] Lactated Ringer's (Ringers, Lactated) 1,000 mls @ 125 mls/hr IV ASDIRECTED [facility] Lidocaine HCl (Xylocaine-Mpf 1%) Confirm Administered Dose 4 mls @ as directed .ROUTE .STK-MED ONE Stop: 03/23/19 08:24 Lidocaine/Sodium Bicarbonate (Buffered Lidocaine 1% In Ns 8.4%) 0.25 ml IDERM ONETIME PRN PRN Reason: Prior to IV Start Lidocaine/Sodium Bicarbonate (Buffered Lidocaine 1% In Ns 8.4%) 0.25 ml IDERM ONETIME PRN PRN Reason: Prior to IV Start Midazolam HCl (Versed 1 Mg/Ml) Confirm Administered Dose 2 mg .ROUTE .STK-MED ONE Stop: 03/23/19 08:24 Propofol (Diprivan 20 Ml) Confirm Administered Dose 200 mg .ROUTE .STK-MED ONE Stop: 03/23/19 08:24 Rocuronium [place] (Zemuron) Confirm Administered Dose 100 mg .ROUTE .STK-MED ONE Stop: 03/23/19 08:25 Sodium Chloride (Saline Flush) 10 ml FLUSH ASDIRECTED PRN PRN Reason: Keep Vein Open Sodium Chloride (Saline Flush) 10 ml FLUSH ASDIRECTED PRN PRN Reason: Keep Vein Open
[2019-03-23] MEDS: Lactated Ringers 1,000 ML IV SCH ×2 (09:15→12:40)
[2019-03-23] MEDS ORDERED: Lidocaine 1% with EPINEPHrine 1:100,000 20 ML MDV ONE (09:20)
[2019-03-23] MEDS ORDERED: Sodium Chloride 0.9% 20 ML ONE (09:20)
[2019-03-23] MEDS ORDERED: Bupivacaine 0.5% 30 ML SDV ONE (09:21)
[2019-03-23] MEDS ORDERED: ceFAZolin 1 GM Vial ONE (09:39)
[2019-03-23] MEDS ORDERED: Ondansetron 4 MG/2 ML SDV ONE (10:29)
[2019-03-23] MEDS ORDERED: Ketorolac 30 MG/ML SDV ONE (10:29)
[2019-03-23] MEDS ORDERED: Dexamethasone 4 MG/ML 5 ML MDV ONE (10:29)
[2019-03-23] MEDS ORDERED: Lactated Ringers 1,000 ML ONE (10:33)
[2019-03-23] MEDS ORDERED: fentaNYL 100 MCG/2 ML SDV IVPUSH PRN (10:39)
[2019-03-23] MEDS ORDERED: Ondansetron 4 MG/2 ML SDV IVPUSH PRN (10:39)
[2019-03-23] MEDS ORDERED: HYDROmorphone 0.5 MG/0.5 ML Syringe IVPUSH PRN (10:39)
[2019-03-23] MEDS ORDERED: HYDROmorphone 0.5 MG/0.5 ML Syringe ONE ×2 (10:44→10:57)
[2019-03-23] MEDS ORDERED: fentaNYL 100 MCG/2 ML SDV ONE (10:50)
--- NOTE | 2019-03-23 11:39 | PCM.POSTAN ---
POST ANESTHESIA ASSESSMENT - MENTAL STATUS Mental Status: Alert, Oriented - VITAL SIGNS Vital Signs: Last Vital Signs Temp 36.6 C 03/23/19 08:48 Pulse 93 03/23/19 08:48 Resp 17 03/23/19 08:48 BP 121/65 03/23/19 08:48 Pulse Ox 98 03/23/19 08:48 - RESPIRATORY Respiratory Status: Respiratory Rate WNL, Airway Patent, O2 Saturation Stable - CARDIOVASCULAR CV Status: Pulse Rate WNL, Blood Pressure Stable - GASTROINTESTINAL GI Status: No Symptoms - PAIN Pain Score: 2 - POST OP HYDRATION Hydration Status: Adequate & Stable
--- NOTE | 2019-03-23 11:57 | PCM.OPNOTE ---
- General Post-Op/Procedure Note Date of Surgery/Procedure: 03/23/19 Operative Procedure(s): Laparoscopic-assisted vaginal hysterectomy with bilateral salpingectomy Findings: Grossly normal-appearing uterus and bilateral fallopian tubes. Grossly normal- appearing bilateral ovaries. Uterus with anterior wall adhesions noted in the lower uterine segment. These were taken down during the case. There is also a small amount of adhesions from the omentum to the anterior abdominal wall in the midline and just left of midline. These were not taken down. Grossly normal-appearing appendix. Grossly normal-appearing visualized portions of the intestines. Liver edge normal on visualization. Pre Op Diagnosis: Abnormal uterine bleeding with uterine fibroid present on ultrasound, dysmenorrhea Post-Op Diagnosis: Same Anesthesia Technique: General ET Tube Primary Surgeon: Cirilo Levy Anesthesia Provider: Mitzi Bro Product Development Technician: Kem Dumont Product Development Technician: Yanna Jeong ([place] student) Reason Product Development Technician Was Necessary: Patient safety and reduction of morbidity and mortality Role of Product Development Technician: Use of laparoscopic instruments for the laparoscopic portion of the case and retraction for visualization Pathology: Uterus, cervix and bilateral fallopian tubes Fluid Replacement, Intraop: 1,500 Output, Urine Amount: 125 EBL in mLs: 175 Complications: None Condition: Good Free Text/Narrative:: The patient was seen in the preoperative holding area and risks, benefits, indications, and alternatives of the procedure were reviewed with the patient and she desired to proceed with a laparoscopic assisted vaginal hysterectomy, bilateral salpingectomy, possible unilateral or bilateral salpingo-oophorectomy and possible total abdominal hysterectomy. Consents were reviewed. The patient was taken back to the OR and given general anesthesia with an endotracheal tube which was placed without difficulty. She was placed in dorsal lithotomy position using Yellofin stirrups. She was prepped and draped in normal sterile fashion. A Garcia catheter was placed without difficulty. Attention was then turned to her umbilicus where a previous laparoscopic scar was visualized. This was injected with 0.25% Marcaine and a 5 mm stab incision was made with a scalpel and a Veress needle was then inserted through the incision. The gas was turned on, with an opening pressure of 5 mmHg. Pneumoperitoneum was continued until 15 mmHg pressure. A 5 mm trocar was then inserted under direct visualization through the incision without difficulty. Upon entry to the peritoneum a global view was taken and noted to have adhesions to the omentum to the anterior abdominal wall to the left of midline. Attention was then turned to the patient's right lower quadrant where an avascular space approximately half-way between the ASIS and the umbilicus was identified. Local anesthetic was injected and a 5 mm incision was made with a scalpel. A 5 mm trocar was then inserted under direct visualization of the laparoscope. Attention was then turned to the left lower quadrant, where again an avascular portion of the abdominal wall was identified approximately half-way between the ASIS and the umbilicus. Local anesthetic was injected and a scalpel was used to make a 5 mm incision. A 5 mm trocar was inserted under direct visualization with the laparoscope. Attention was then turned to the pelvis where the uterus was visualized and noted be normal in appearance with normal appearing bilateral fallopian tubes and normal-appearing bilateral ovaries. The lower uterine segment was noted to have some adhesions to the anterior abdominal wall. The atraumatic grasper was then removed from the right lower trocar and a Enseal vessel sealing device was introduced and was used to transect the right fallopian tube and round ligament. The mesosalpinx connecting the right fallopian tube was transected from the ovary and underlying tissue. The right round ligament was then transected using the Enseal vessel sealing device. The utero-ovarian ligament was then transected using the Enseal vessel sealing device. The right side of the uterus and broad ligament were then transected using the Enseal vessel sealing device until the level of the uterovesical peritoneal reflection. A bladder flap was created using the Enseal vessel sealing device as well as to take down the adhesions to the lower uterine segment. This was repeated on the patient's left side. The fallopian tube was transected from the mesosalpinx using the Enseal vessel sealing device. The utero-ovarian ligament was then transected using Enseal vessel sealing device. The left round ligament was transected using Enseal vessel sealing device and the broad ligament was transected to the level of the uterovesical peritoneal reflection. The pelvis was then inspected for hemostasis at this time and hemostasis was noted. All instruments were removed from the abdomen. Attention was then turned to the patient's perineum where a weighted speculum was placed into the vagina and a [place] retractor was used to visualize the cervix. The cervix was grasped with a double-tooth tenaculum. The cervical reflection point was then injected circumferentially with 0.25% lidocaine with epinephrine. The cervix was then circumferentially incised with a scalpel. The bladder was then dissected off the pubovesical cervical fascia anteriorly with Metzenbaum scissors and the anterior cul-de-sac was entered sharply without difficulty. The same procedure was performed posteriorly and the posterior cul- de-sac was entered sharply without difficulty using Metzenbaum scissors. At this point, an Enseal vessel sealing device was placed over the uterosacral ligaments on the patient's left side. These were cauterized and ligated with the device. This was repeated on the patient's right side. Hemostasis was assured. The cardinal ligaments were then clamped on both sides using the Enseal vessel sealing device, cauterized and transected with the device. The uterine artery on the patient's right side side and the remainder of the broad ligament were then serially clamped with the Enseal vessel sealing device, cauterized and transected with the device. Excellent hemostasis was noted. The cervix and uterus was able to be delivered at this time. The posterior vaginal cuff was closed with running locked sutures of 0 Monocryl. The vaginal cuff was then closed in a horizontal fashion using running locked sutures with 0 Monocryl suture. All instruments were removed from the vagina. Attention was then turned to the abdomen where a laparoscope was inserted and was used to check for hemostasis. There was a small amount of oozing noted from the right pelvic sidewall and this was cauterized using the Enseal vessel sealing device. Hemostasis was noted at this time. The case was complete at this time. The gas was then evacuated from the peritoneum and trocars removed. These were closed using 4-0 Monocryl suture for the umbilical and right lower quadrant port sites and Dermabond was used over the top of all of the port sites. The patient was awoken from general anesthesia and taken to the PACU for recovery in stable condition. She will be discharged to home once she is able to meet all postoperative milestones including tolerating small amount of oral intake and liquids, ambulate without difficulty, her pain controlled with oral medications and able to void without difficulty. She will follow-up in the clinic in 2 weeks or earlier as needed. Sponge, lap, needle, and instrument counts were correct x 2. Review of images IMG 001: Error image IMG 002: Error image IMG 003: Right fallopian tube and ovary grossly normal in appearance. Grossly normal-appearing uterus. Normal-appearing visualized portions of the intestine. IMG 004: Grossly normal-appearing left fallopian tube and visualized portion of the ovary. Normal-appearing uterus. IMG 005: Lower uterine segment with adhesions to the anterior abdominal wall. IMG 006: Grossly normal-appearing appendix and visualized portions of the intestines. IMG 007: Right lobe of the liver grossly normal in appearance IMG 008: Grossly normal-appearing left lobe of liver with normal-appearing stomach IMG 009: Left pelvic sidewall status post hysterectomy with hemostasis noted IMG 010: Vaginal cuff status post hysterectomy with hemostasis noted IMG 011: Right pelvic sidewall with hemostasis noted status post hysterectomy IMG 012: Right lower quadrant port site after removal of trocar with hemostasis noted
[2019-03-23] MEDS ORDERED: Acetaminophen/oxyCODONE 325-5 MG Tab PO PRN (12:30)
--- NOTE | 2019-03-23 12:49 | PCM48HPAN ---
Post Anesthesia Note - EVALUATION WITHIN 48HRS OF ANESTHETIC Vital Signs in Normal Range: Yes Patient Participated in Evaluation: Yes Respiratory Function Stable: Yes Airway Patent: Yes Cardiovascular Function Stable: Yes Hydration Status Stable: Yes Pain Control Satisfactory: Yes Nausea and Vomiting Control Satisfactory: Yes Mental Status Recovered: Yes Vital Signs: Last Vital Signs Temp 36.8 C 03/23/19 12:35 Pulse 113 H 03/23/19 12:35 Resp 14 03/23/19 12:35 BP 127/85 03/23/19 12:35 Pulse Ox 100 03/23/19 12:35
[2019-03-23 16:04] VITALS: BP 137/86; PULSE 113
== END 2019-03-23 14:45 | disposition home or self-care (01) ==
LOC: JD.SDS 08:43
PROVIDERS: ATTEND Obstetrics & Gynecology
DX: N71.1 Chronic inflammatory disease of uterus (principal); N72 Inflammatory disease of cervix uteri; N87.9 Dysplasia of cervix uteri, unspecified; N73.6 Female pelvic peritoneal adhesions (postinfective); N70.01 Acute salpingitis; F41.8 Other specified anxiety disorders; F17.210 Nicotine dependence, cigarettes, uncomplicated; Z88.0 Allergy status to penicillin; Z91.09 Other allergy status, other than to drugs and biological substances; Z79.899 Other long term (current) drug therapy
CPT/HCPCS: 36415; 58552; 80053; 81001; 81025; 85025; 86850; 86900; 86901; A9270; J0690; J1100; J1170; J1885; J2001; J2250; J2405; J2704; J3010; J3490; J7120; 00944

== ENCOUNTER 2020-07-16 10:55 | Emergency (ER) | payer BC ==
[2020-07-16] MEDS ORDERED: Ketorolac 30 MG/ML SDV IVPUSH ONE (11:27)
[2020-07-16] MEDS ORDERED: Ondansetron 4 MG/2 ML SDV IVPUSH ONE (11:27)
[2020-07-16] MEDS ORDERED: Sodium Chloride 0.9% 1,000 ML IV ONE (11:27)
[2020-07-16] MEDS ORDERED: Sodium Chloride 0.9% 10 ML Syringe FLUSH PRN (11:27)
[2020-07-16] MEDS ORDERED: HYDROmorphone 0.5 MG/0.5 ML Syringe IVPUSH ONE (12:16)
--- NOTE | 2020-07-16 12:21 | EDM.PDOC ---
ED HPI GENERAL MEDICAL PROBLEM - General Chief Complaint: Abdominal Pain Stated Complaint: LOWER ABDOMINAL PAIN Time Seen by Provider: 07/16/20 11:06 Source of Information: Reports: Patient History Limitations: Reports: No Limitations - History of Present Illness INITIAL COMMENTS - FREE TEXT/NARRATIVE: 24-year-old female presents the emergency department today with lower abdominal pain. Patient states that she developed severe lower abdominal pressure/pain last night about 8:00 when she is laying in bed. She is described as a pressure primarily on her left side and it was so extreme that it did make her vomit. She states she also had chills associated with this last evening. She has been nauseated since and denies any diarrhea or constipation. She states she did mclain ve a normal bowel movement last evening and then 1 again today. She denies any urgency, frequency or burning with urination however she states she experiences a pressure in her pelvic area when voiding. She tells me she does have a history of a blood clot on her right ovary for which she was taking Xarelto. She saw her oncologist last week and he did clear her however he recommends she take aspirin daily indefinitely. She states she is aware that she does have some cysts on her ovaries however she has never had a history of rupture. She does have a history of hysterectomy so there is no chance that she could be . She states she still has the pressure/pain today. It is worse when she is up ambulating and moving around and she states it is tolerable once she is laying in bed. Lower Abdomen Pain Score (Numeric/FACES): 7 - Related Data Allergies Allergy/AdvReac Type Severity Reaction Status Date / Time cat dander Allergy Cannot Verified 07/16/20 11:00 Remember grass pollen Allergy Cannot Verified 07/16/20 11:00 Remember mold Allergy Cannot Verified 07/16/20 11:00 Remember Penicillins Allergy Cannot Verified 07/16/20 11:00 Remember Home Meds: Home Meds Cetirizine HCl [Zyrtec] 10 mg PO DAILY 03/22/19 [History] Fluticasone Propionate [Flonase] 1 dose NASBOTH BID PRN 03/22/19 [History] Ibuprofen 600 mg PO Q6H PRN #60 tablet 03/23/19 [Rx] Aspirin [Halfprin] 81 mg PO DAILY 07/16/20 [History] FLUoxetine HCl [Prozac] 20 mg PO DAILY 07/16/20 [History] Past Medical History HEENT History: Reports: Impaired Vision Other HEENT History: wears contacts Cardiovascular History: Reports: None Respiratory History: Reports: None Gastrointestinal History: Reports: GERD Genitourinary History: Reports: UTI, Recurrent Other Genitourinary History: chlamydia FACILITY MANAGER HISTOLOGY History: Reports: Other FACILITY MANAGER HISTOLOGY History: abnormal uterine bleeding, dysmenorrhea, menorrhagia,gardnerella vaginitis, uterine leiomyoma, pelvic pain Musculoskeletal History: Reports: Other (See Below) Other Musculoskeletal History: left de quervains tenosynovitis Neurological History: Reports: Other (See Below) Other Neuro History: dizziness Psychiatric History: Reports: Anxiety, Depression Endocrine/Metabolic History: Reports: Obesity/BMI 30+ Hematologic History: Reports: Anemia, Iron Deficiency Other Hematologic History: in . Immunologic History: Reports: None Oncologic (Cancer) History: Reports: None Dermatologic History: Reports: Other (See Below) Other Dermatologic History: rash, skin lesion - Past Surgical History HEENT Surgical History: Reports: Other (See Below) Other HEENT Surgeries/Procedures: left ear drum reconstruction GI Surgical History: Reports: Cholecystectomy Female Surgical History: Reports: Section, Hysterectomy Social & Family History - Family History Family Medical History: No Pertinent Family History - Tobacco Use Tobacco Use Status *Q: Current Every Day Tobacco User Years of Tobacco use: 10 Packs/Tins Daily: 0.7 Second Hand Smoke Exposure: No - Caffeine Use Caffeine Use: Reports: Coffee, Energy Drinks, Soda - Alcohol Use Days Per Week of Alcohol Use: 2 Number of Drinks Per Day: 1 Total Drinks Per Week: 2 - Recreational Drug Use Recreational Drug Use: No - Living Situation & Occupation Living situation: Reports: Single, Alone Occupation: Employed ED ROS GENERAL - Review of Systems Review Of Systems: Comprehensive ROS is negative, except as noted in HPI. ED EXAM, GI/ABD - Physical Exam Exam: See Below Exam Limited By: No Limitations General Appearance: Alert, WD/WN, No Apparent Distress Ears: Normal External Exam, Hearing Grossly Normal Nose: Normal Inspection Throat/Mouth: Normal Inspection, Normal Lips, Normal Voice, No Airway Compromise Head: Atraumatic, Normocephalic Neck: Normal Inspection, Supple, Non-Tender, Full Range of Motion Respiratory/Chest: No Respiratory Distress, Lungs Clear, Normal Breath Sounds, No Accessory Muscle Use, Chest Non-Tender Cardiovascular: Normal Peripheral Pulses, Regular Rate, Rhythm, No Edema, No Murmur GI/Abdominal Exam: Normal Bowel Sounds, Soft, No Distention, Tender (left lower quadrant and supra pubic) (Female) Exam: Deferred Rectal (Female) Exam: Deferred Back Exam: Normal Inspection Extremities: Normal Inspection, Normal Range of Motion, Non-Tender, No Pedal Edema, Normal Capillary Refill Neurological: Alert, Oriented, Normal Cognition Psychiatric: Normal Affect, Normal Mood Skin Exam: Warm, Dry, Intact, Normal Color, No Rash Lymphatic: No Adenopathy Course - Vital Signs Text/Narrative:: Again a 24-year-old female sudden onset lower abdominal pain/pressure that started around 8:00 last evening when she was laying in bed. States the pressure was so severe that it caused her to vomit and she has been nauseated since. She did have a normal bowel movement last evening and this morning. States she has chills but no fever last evening. Upon assessment she still complains of a pressure to her pelvic area greater on the left than on the right. With palpation to her abdomen and bilateral upper quadrants she states the palpation causes pressure to radiate to her left pelvis and suprapubic area. States that when she voids she has more of a pressure and denies any burning or frequency with urination. She does have a history of hysterectomy however does still have her ovaries. I have ordered a liter of IV fluids as the patient states she has not drank or eaten anything since she vomited last evening, Zofran for nausea and Toradol for the discomfort. I have also ordered labs and urinalysis. Last Recorded V/S: Last Vital Signs Temp 96.9 F 07/16/20 11:00 Pulse 98 07/16/20 11:00 Resp 16 07/16/20 11:00 BP 137/75 07/16/20 11:00 Pulse Ox 97 07/16/20 11:00 - Orders/Labs/Meds Orders: Active Orders 24 hr Category Date Time Status Sodium Chloride 0.9% [Saline Flush] Med 07/16/20 11:27 Active 10 ml FLUSH ASDIRECTED PRN Saline Lock Insert [OM.PC] Stat Oth 07/16/20 11:27 Ordered Medication Orders Sodium Chloride (Sodium Chloride 0.9% 10 Ml Syringe) 10 ml FLUSH ASDIRECTED PRN PRN Reason: Keep Vein Open Last Admin: 07/16/20 11:44 Dose: 10 ml Documented by: DEREK Labs: Laboratory Tests 07/16/20 07/16/20 07/16/20 Range/Units 11:35 11:35 11:41 WBC 7.55 (3.98-10.04) K/mm3 RBC 4.90 (3.98-5.22) M/mm3 Hgb 14.6 (11.2-15.7) gm/dl Hct 45.3 H (34.1-44.9) % MCV 92.4 D (79.4-94.8) fl MCH 29.8 (25.6-32.2) pg MCHC 32.2 (32.2-35.5) g/dl RDW Std Deviation 49.7 H (36.4-46.3) fL Plt Count 266 D (182-369) K/mm3 MPV 9.9 (9.4-12.3) fl Neut % (Auto) 64.9 (34.0-71.1) % Lymph % (Auto) 24.2 (19.3-51.7) % Colbert % (Auto) 9.8 (4.7-12.5) % Eos % (Auto) 0.5 L (0.7-5.8) Baso % (Auto) 0.3 (0.1-1.2) % Neut # (Auto) 4.90 (1.56-6.13) K/mm3 Lymph # (Auto) 1.83 (1.18-3.74) K/mm3 Colbert # (Auto) 0.74 H (0.24-0.36) K/mm3 Eos # (Auto) 0.04 (0.04-0.36) K/mm3 Baso # (Auto) 0.02 (0.01-0.08) K/mm3 Sodium 139 (136-145) mEq/L Potassium 4.2 (3.5-5.1) mEq/L Chloride 104 (98-107) mEq/L Carbon Dioxide 25 (21-32) mEq/L Anion Gap 14.2 (5-15) BUN 13 (7-18) mg/dL Creatinine 0.7 (0.55-1.02) mg/dL Est Cr Clr Drug Dosing 100.74 mL/min Estimated GFR (MDRD) > 60 (>60) mL/min BUN/Creatinine Ratio 18.6 H (14-18) Glucose 96 (74-106) mg/dL Calcium 8.8 (8.5-10.1) mg/dL Total Bilirubin 0.4 (0.2-1.0) mg/dL AST 14 L (15-37) U/L ALT 29 (14-59) U/L Alkaline Phosphatase 50 (46-116) U/L C-Reactive Protein 0.7 (<1.0) mg/dL Total Protein 7.5 (6.4-8.2) g/dl Albumin 3.8 (3.4-5.0) g/dl Globulin 3.7 gm/dL Albumin/Globulin Ratio 1.0 (1-2) Urine Color Yellow (Yellow) Urine Appearance Clear (Clear) Urine pH 6.0 (5.0-8.0) Ur Specific [place] 1.025 (1.005-1.030) Urine Protein Negative (Negative) Urine Glucose (UA) Negative (Negative) Urine Ketones Negative (Negative) Urine Occult Blood 1+ H (Negative) Urine Nitrite Negative (Negative) Urine Bilirubin Negative (Negative) Urine Urobilinogen 0.2 (0.2-1.0) Ur Leukocyte Esterase Negative (Negative) Urine RBC 0-5 (0-5) /hpf Urine WBC 0-5 (0-5) /hpf Ur Epithelial Cells 0-5 (0-5) /hpf Urine Bacteria Few (FEW) /hpf Urine Mucus Few (FEW) /hpf Meds: Medications Generic Name Dose Route Start Last Admin Trade Name Benigno PRN Reason Stop Dose Admin Sodium Chloride 10 ml 07/16/20 11:27 07/16/20 11:44 Sodium Chloride 0.9% 10 Ml Syringe FLUSH 10 ml ASDIRECTED PRN Administration Keep Vein Open Discontinued Medications Generic Name Dose Route Start Last Admin Trade Name Frehuy PRN Reason Stop Dose Admin Hydromorphone HCl 0.5 mg 07/16/20 12:16 07/16/20 12:27 Hydromorphone 0.5 Mg/0.5 Ml Syringe IVPUSH 07/16/20 12:17 0.5 mg ONETIME ONE Administration Sodium Chloride 1,000 mls @ 999 mls/hr 07/16/20 11:27 07/16/20 11:42 Normal Saline IV 07/16/20 12:27 999 mls/hr ONETIME ONE Administration Ketorolac Tromethamine 30 mg 07/16/20 11:27 07/16/20 11:43 Ketorolac 30 Mg/Ml Sdv IVPUSH 07/16/20 11:28 30 mg ONETIME ONE Administration Ondansetron HCl 4 mg 07/16/20 11:27 07/16/20 11:43 Ondansetron 4 Mg/2 Ml Sdv IVPUSH 07/16/20 11:28 4 mg ONETIME ONE Administration - Re-Assessments/Exams Free Text/Narrative Re-Assessment/Exam: 07/16/20 12:25 Hematology reveals a WBC of 7.55, hemoglobin 14.6, hematocrit 45.3 Chemistry reveals a sodium of 139, potassium of 4.2, anion gap 14.2, BUN 13, creatinine 0.7, glucose is 96, C-reactive protein 0.7 Urinalysis reveals 1+ occult blood but is otherwise unremarkable I have ordered a transvaginal ultrasound as labs do not reveal any sort of infective process and I am highly suspicious the patient may have a ruptured ovarian cyst. I have also ordered patient to receive some Dilaudid prior to transvaginal ultrasound as she states the Toradol did help some but she is still uncomfortable with movement. 07/16/20 13:29 Radiologist impression pelvic ultrasound transvaginal: 1. Slightly complicated cyst within the right ovary measuring up to 4.0 cm in size. 2. Other portions of the pelvic ultrasound appear within normal limits. I have ordered KUB on this patient as she states she has had a history of constipation issues in the past. 07/16/20 13:50 Addendum to radiologist impression non-OB transvaginal ultrasound: Previous report stated a cyst is seen within the right ovary which is incorrect. The cyst within the left ovary. The right ovary appears normal. Left ovary cyst measuring 3.4 x 2.7 x 4.0 cm. Cyst shows minimal complications. No free fluid is seen. Patient will be discharged to home with recommendations that she follow up with her FACILITY MANAGER HISTOLOGY Dr. gary this week for further evaluation. Departure - Departure Time of Disposition: 13:51 Disposition: Home, Self-Care 01 Condition: Good Clinical Impression: Left ovarian cyst - Discharge Information Instructions: Ovarian Cyst, [id number], Pain Medicine Instructions, [id number] Referrals: Fanta Schulte PA-C [Primary Care Provider] - Cirilo Gary MD [Physician] - Forms: ED Department Discharge Additional Instructions: You were seen in the emergency department today with complaints of pain to your left abdomen and pressure. Labs were completed and these were unremarkable for any infection however you did have a transvaginal ultrasound which does show you have a 4 cm cyst on your left ovary. This is likely the cause of your pressure and discomfort. At this time there is no free fluid seen around this area. You will be discharged to home with recommendations you take 600 mg of ibuprofen every 6 hours for the discomfort. You did receive a dose of Toradol which is a strong nonsteroidal anti-inflammatory in the emergency department at 11:45. You can start your first dose of the ibuprofen at about 545/6 PM tonight. Strongly recommend that you follow-up with your FACILITY MANAGER HISTOLOGY, Dr. Gary, this week for further evaluation of your ovarian cyst. Should your condition worsen or change do not hesitate returning to the emergency department. Sepsis Event Note (ED) - Evaluation Sepsis Screening Result: No Definite Risk - Focused Exam Vital Signs: Vital Signs Temp Pulse Resp BP Pulse Ox 07/16/20 11:00 96.9 F 98 16 137/75 97 - My Orders Last 24 Hours: My Active Orders 07/16/20 11:27 Sodium Chloride 0.9% [Saline Flush] 10 ml FLUSH ASDIRECTED PRN Saline Lock Insert [OM.PC] Stat - Assessment/Plan Last 24 Hours: My Active Orders 07/16/20 11:27 Sodium Chloride 0.9% [Saline Flush] 10 ml FLUSH ASDIRECTED PRN Saline Lock Insert [OM.PC] Stat
--- NOTE | 2020-07-16 13:22 | US ---
Addendum: Previous report stated a cyst is seen within the right ovary which is incorrect. The cyst is within the left ovary. The right ovary appears normal. --- Addendum1 above dictated on [07/16/2020 13:42] by [Erin Rivera, Srikanth Mock] --- --- Addendum1 above signed on [07/16/2020 13:45] by [Erin Rivera Hilton J.] --- --- Original report below dictated on [07/16/2020 13:18] by [Erin Rivera, Srikanth Mock] --- --- Original report below signed on [07/16/2020 13:19] by [Erin Rivera Hilton J.] --- Pelvic ultrasound: Multiple real-time images were obtained transvaginally. Comparison: Prior CT abdomen and pelvis study 11/08/19. Prior pelvic ultrasound of 02/24/19 is also available. Uterus is not seen compatible with prior hysterectomy. Right ovary shows a cyst measuring 3.4 x 2.7 x 4.0 cm. Cyst shows minimal complications. Left ovary is unremarkable. No free fluid is seen. Measurements: Right ovary: 4.2 x 4.2 x 3.7 cm Left ovary: 4.1 x 2.2 x 1.8 cm Impression: 1. Slightly complicated cyst within the right ovary measuring up to 4.0 cm in size. 2. Other portions of the pelvic ultrasound appear within normal limits. Diagnostic code #3 --- Addendum1 signed ---
[2020-07-16 14:10] VITALS: BP 118/79; PULSE 76
== END 2020-07-16 14:05 | disposition home or self-care (01) ==
LOC: JD.ED 10:55
DX: N83.202 Unspecified ovarian cyst, left side (principal); E66.9 Obesity, unspecified; Z68.41 Body mass index [BMI] 40.0-44.9, adult; Z72.0 Tobacco use; Z91.048 Other nonmedicinal substance allergy status; Z88.0 Allergy status to penicillin; Z79.82 Long term (current) use of aspirin; Z79.899 Other long term (current) drug therapy
CPT/HCPCS: 36415; 76830; 80053; 81001; 85025; 86140; 96374; 96375; 99284; J1170; J1885; J2405; J7030

== ENCOUNTER 2021-01-04 21:18 | Emergency (ER) | payer BC ==
--- NOTE | 2021-01-05 00:54 | EDM.PDOC ---
ED HPI GENERAL MEDICAL PROBLEM - General Chief Complaint: Gastrointestinal Problem Stated Complaint: BLOODY STOOLS Time Seen by Provider: 01/05/21 00:39 Source of Information: Reports: Patient History Limitations: Reports: No Limitations - History of Present Illness INITIAL COMMENTS - FREE TEXT/NARRATIVE: Ms. Orr is a pleasant 25-year-old woman who now presents the ED stating that she had some bright red blood with dark clot on the toilet paper when she wiped after a bowel movement around 1030 this morning, then again this evening. No associated pain. She reports having slight abdominal rectal pain, but she states that she has had slight abdominal cramps this afternoon. No prior similar symptoms. The patient did not take any [id number] or home remedies prior to taking coming to the ED. The patient is not on an anticoagulant, but she does take an 81 mg aspirin daily. Here in the ED, the patient is found to be hemodynamically stable, afebrile, saturating 97% on room air. She appears to be comfortable, no acute distress. Prior to today, the patient states that she occasionally gets watery diarrhea, otherwise, the patient denies having a recent fever, chills, sore throat, ear pain, nasal or sinus congestion, cough, dyspnea, chest pain, palpitations, nausea, vomiting, constipation, abdominal pain, urinary symptoms, recent weight gain or weight loss, recent bloody bowel movements or black bowel movements, recent joint aches, headaches, or rashes. The patient's PCP is ELIZABETH Burton. Her Test Department Helper is Dr. Cirilo Levy. She has not received a COVID vaccination. - Related Data Allergies Allergy/AdvReac Type Severity Reaction Status Date / Time cat dander Allergy Cannot Verified 01/04/21 23:23 Remember grass pollen Allergy Cannot Verified 01/04/21 23:23 Remember mold Allergy Cannot Verified 01/04/21 23:23 Remember Penicillins Allergy Cannot Verified 01/04/21 23:23 Remember Home Meds: Home Meds Cetirizine HCl [Zyrtec] 10 mg PO DAILY 03/22/19 [History] Fluticasone Propionate [Flonase] 1 dose NASBOTH BID PRN 03/22/19 [History] Aspirin [Halfprin] 81 mg PO DAILY 07/16/20 [History] Escitalopram Oxalate [Lexapro] 10 mg PO DAILY 01/04/21 [History] L.acidoph,Paracasei, B.lactis [Probiotic] 1 tab PO DAILY 01/04/21 [History] Past Medical History HEENT History: Reports: Impaired Vision (wears glasses) Gastrointestinal History: Reports: GERD DIRECTOR PERSONAL History: Reports: Other (See Below) (Ovarian thrombosis. Ovarian cysts.) Musculoskeletal History: Reports: Other (See Below) (Left de Quervain tendinopathy) Psychiatric History: Reports: Anxiety, Depression Endocrine/Metabolic History: Reports: Obesity/BMI 30+ - Past Surgical History HEENT Surgical History: Reports: Other (See Below) (Left TM reconstruction) GI Surgical History: Reports: Cholecystectomy (2011) Female Surgical History: Reports: Section (x 3), Hysterectomy (partial) Social & Family History - Tobacco Use Tobacco Use Status *Q: Current Every Day Tobacco User Years of Tobacco use: 16 Packs/Tins Daily: 0.5 Packs/Tins Daily Comment: Down from 1 ppd Tobacco Use Comment: Started smoking 2004 - Caffeine Use Caffeine Use: Reports: Coffee - Alcohol Use Alcohol Use History: Yes Alcohol Use Frequency: Socially - Recreational Drug Use Recreational Drug Use: Yes Drug Use in Last 12 Months: No Recreational Drug Type: Reports: Marijuana/Hashish (last smoked 2014), Methamphetamine (Last snorted, smoked 2011) - Living Situation & Occupation Living situation: Reports: Single, with Family (1 child) Occupation: Employed ([employer]) ED ROS GENERAL - Review of Systems Review Of Systems: Comprehensive ROS is negative, except as noted in HPI. ED EXAM, GI/ABD - Physical Exam Exam: See Below Exam Limited By: No Limitations General Appearance: Alert, WD/WN, No Apparent Distress Eyes: Bilateral: Normal Appearance, EOMI Ears: Normal External Exam, Hearing Grossly Normal Nose: Normal Inspection Throat/Mouth: Normal Inspection, Normal Lips, Normal Voice, No Airway Compromise Head: Atraumatic, Normocephalic Neck: Normal Inspection, Full Range of Motion Respiratory/Chest: No Respiratory Distress, Lungs Clear, Normal Breath Sounds, No Accessory Muscle Use Cardiovascular: Normal Peripheral Pulses, Regular Rate, Rhythm, No Edema, No Gallop, No JVD, No Murmur, No Rub GI/Abdominal Exam: Normal Bowel Sounds, Soft, Non-Tender, No Organomegaly, No Distention, No Abnormal Bruit, No Mass Rectal (Female) Exam: Normal Rectal Tone, Other (Likely anal fissure at 6:00 position if the patient were in the dorsal lithotomy position. Tender to palpation. Hemoccult positive on the finger, although no stool in the rectum.) Back Exam: Normal Inspection, Full Range of Motion, NT Extremities: Normal Inspection, Normal Range of Motion, Normal Capillary Refill Neurological: Alert, Oriented, Normal Cognition, No Motor/Sensory Deficits Psychiatric: Normal Affect Skin Exam: Warm, Dry, Intact, Normal Color, No Rash Course - Vital Signs Last Recorded V/S: Last Vital Signs Temp 36.6 C 01/04/21 23:19 Pulse 86 01/05/21 01:13 Resp 19 01/05/21 01:13 BP 109/66 01/05/21 01:13 Pulse Ox 99 01/05/21 01:13 - Re-Assessments/Exams Free Text/Narrative Re-Assessment/Exam: 01/05/21 00:52 I asked the patient to change into a gown so that I can perform a rectal exam. 01/05/21 01:02 On rectal examination, the patient had a couple of small, noninflamed/thrombosed hemorrhoids. I palpated what feels to be an anal fissure at the 6 o'clock position, if the patient were in the dorsal lithotomy position. Palpation was tender. No tenderness elsewhere. No stool in the rectum, but positive Hemoccult. I will refer the patient to Dr. Pizano. Departure - Departure Time of Disposition: 01:05 Disposition: Home, Self-Care 01 Condition: Good Clinical Impression: Rectal fissure - Discharge Information *PRESCRIPTION DRUG MONITORING PROGRAM REVIEWED*: Not Applicable *COPY OF PRESCRIPTION DRUG MONITORING REPORT IN PATIENT SHAISTA: Not Applicable Instructions: Anal Fissure, Adult, [id number] Referrals: Fanta Schulte PA-C [Primary Care Provider] - Cirilo Levy MD [Physician] - Emmy Pizano MD [Physician] - Forms: ED Department Discharge Additional Instructions: You were seen in the emergency room after having 2 bowel movements today associated with bright red blood and clots. On examination, you may have an anal fissure. We recommend that you keep your stools soft. Take a stool softener, if necessary. For discomfort, you may perform sitz baths. Please follow-up with the Surgeon Dr. Emmy Pizano at the next available appointment for further evaluation. If any other problems, please do not hesitate to return to the ER. Sepsis Event Note (ED) - Focused Exam Vital Signs: Vital Signs Temp Pulse Resp BP Pulse Ox 01/05/21 01:13 86 19 109/66 99 01/04/21 23:19 36.6 C 92 16 129/80 97
[2021-01-05 01:16] VITALS: BP 109/66; PULSE 86
== END 2021-01-05 01:13 | disposition home or self-care (01) ==
LOC: JD.ED 21:18
DX: K60.2 Anal fissure, unspecified (principal); E66.9 Obesity, unspecified; Z88.0 Allergy status to penicillin; Z91.09 Other allergy status, other than to drugs and biological substances; Z91.048 Other nonmedicinal substance allergy status; Z79.82 Long term (current) use of aspirin; Z68.41 Body mass index [BMI] 40.0-44.9, adult; Z72.0 Tobacco use
CPT/HCPCS: 99283

== ENCOUNTER 2022-03-06 09:25 | Day surgery (SDC) | payer OTHER, BC ==
[~2022-03-06 09:25] MED LIST changes: +EPINEPHrine 1 MG/ML 30 ML MDV IRR SCH; -Lidocaine 1% 4 ML ONE; -Midazolam 1 MG/ML 2 ML SDV ONE; -Propofol 200 MG/20 ML SDV ONE; -Rocuronium 100 MG/10 ML MDV ONE; +Sodium Chloride 0.9% 10 ML Syringe FLUSH SCH; -fentaNYL 250 MCG/5 ML SDV ONE
[2022-03-06] MEDS ORDERED: EPINEPHrine 1 MG/ML SDV ONE (10:28)
[2022-03-06] MEDS ORDERED: Ropivacaine 0.5% 5 MG/ML 30 ML SDV ONE (10:29)
[2022-03-06] MEDS ORDERED: Lidocaine 1% 2 ML ONE (10:30)
[2022-03-06] MEDS ORDERED: Dexmedetomidine 200 MCG/2 ML SDV ONE (10:31)
[2022-03-06] MEDS ORDERED: fentaNYL 100 MCG/2 ML SDV ONE (10:44)
[2022-03-06] MEDS ORDERED: Midazolam 1 MG/ML 2 ML SDV ONE (10:44)
[2022-03-06] MEDS ORDERED: Lidocaine 1% 5 ML VIAL ONE (11:47)
[2022-03-06] MEDS ORDERED: Ondansetron 4 MG/2 ML SDV ONE (11:48)
[2022-03-06] MEDS ORDERED: Dexamethasone 4 MG/ML 5 ML MDV ONE (11:48)
[2022-03-06] MEDS ORDERED: Propofol 200 MG/20 ML SDV ONE ×2 (11:49)
[2022-03-06] MEDS ORDERED: HYDROmorphone 0.5 MG/0.5 ML Syringe IVPUSH PRN (11:59)
[2022-03-06] MEDS ORDERED: Ondansetron 4 MG/2 ML SDV IVPUSH PRN (11:59)
[2022-03-06] MEDS ORDERED: fentaNYL 100 MCG/2 ML SDV IVPUSH PRN (11:59)
[2022-03-06] MEDS ORDERED: ceFAZolin 2 GM Vial ONE (12:00)
[2022-03-06] MEDS ORDERED: Ketorolac 30 MG/ML SDV ONE (13:03)
[2022-03-06 15:27] VITALS: BP 105/83; PULSE 74
== END 2022-03-06 14:46 | disposition home or self-care (01) ==
LOC: JD.SDS 09:25
PROVIDERS: ATTEND Orthopaedic Surgery
DX: S43.432A Superior glenoid labrum lesion of left shoulder, initial encounter (principal); M75.22 Bicipital tendinitis, left shoulder; F41.9 Anxiety disorder, unspecified; J30.9 Allergic rhinitis, unspecified; F32.A Depression, unspecified; E66.9 Obesity, unspecified; F17.210 Nicotine dependence, cigarettes, uncomplicated; Z88.0 Allergy status to penicillin; Z91.048 Other nonmedicinal substance allergy status; Z79.82 Long term (current) use of aspirin; Z79.899 Other long term (current) drug therapy; Z98.890 Other specified postprocedural states; Z90.710 Acquired absence of both cervix and uterus; Z68.41 Body mass index [BMI] 40.0-44.9, adult; V89.2XXA Person injured in unspecified motor-vehicle accident, traffic, initial encounter
CPT/HCPCS: 29807; 29828; C1713; J0171; J0690; J1100; J1885; J2250; J2405; J2704; J2795; J3010; J7120; 01630; 64415; 76942

== ENCOUNTER 2024-05-04 08:28 | Day surgery (SDC) | payer BC ==
[2024-05-04] MEDS ORDERED: Sodium Chloride 0.9% 10 ML Syringe FLUSH PRN (10:28)
[2024-05-04] MEDS: Ketorolac 15 MG/ML SDV IVPUSH ONE (10:38)
[2024-05-04 10:39] LABS: BASOPHILS PERCENT AUTO 0.5 % (0.0-1.0); EOSINOPHILS PERCENT AUTO 0.4 % (0.0-6.0); HEMATOCRIT 43.5 % (37.0-47.0); HEMOGLOBIN 14.6 gm/dl (12.0-16.0); IMMATURE GRAN ABSOLUTE AUTO 0.01 K/mm3 (0.00-0.05); IMMATURE GRAN PERCENT AUTO 0.2 % (0.0-0.4); LYMPHOCYTES ABSOLUTE AUTO 1.6 K/mm3 (1.0-4.8); MEAN CORPUSCULAR HEMOGLOBIN 30.1 pg (28.0-32.0); MEAN CORPUSCULAR HGB CONC 33.6 g/dl (32.0-36.0); MEAN CORPUSCULAR VOLUME 89.7 fl (83.0-99.0); MEAN PLATELET VOLUME 9.8 fl (9.4-12.3); MONOCYTES ABSOLUTE AUTO 0.3 K/mm3 (0.0-0.8); MONOCYTES PERCENT AUTO 6.2 % (0.0-8.0); NEUTROPHILS ABSOLUTE AUTO 3.4 K/mm3 (1.8-7.7); NEUTROPHILS PERCENT AUTO 62.7 % (41.0-71.0); PLATELET COUNT,PLT 312 K/mm3 (150-400); RED BLOOD CELL COUNT 4.85 M/mm3 (4.10-5.30); WHITE BLOOD CELL COUNT,WBC 5.47 K/mm3 (3.9-11.3)
[2024-05-04] MEDS: Sodium Chloride 0.9% 10 ML Syringe FLUSH PRN (10:43)
[2024-05-04 10:49] LABS: A/G RATIO 1.1 (1-2); ALBUMIN 4.2 g/dl (3.4-5.0); ANION GAP 15.2 (5-15); BILIRUBIN TOTAL 0.5 mg/dL (0.2-1.0); BUN/CREATININE RATIO 12.9 (14-18); CALCIUM 9.1 mg/dL (8.5-10.1); CREATININE 0.7 mg/dL (0.55-1.02); EST CRCL DRUG DOSING (CG) 97.21 mL/min; POTASSIUM,K 4.2 mEq/L (3.5-5.1); PROTEIN TOTAL,TP 7.9 g/dl (6.4-8.2)
[2024-05-04] MEDS: Iopamidol 612 MG/ML 100 ML Bottle IVPUSH ONE (10:50)
[2024-05-04] MEDS: Morphine 4 MG/ML Syringe IVPUSH ONE ×2 (11:49→12:54)
[2024-05-04 12:27] LABS: APPEARANCE,URINE CLEAR (Clear); BILIRUBIN,URINE NEGATIVE (Negative); COLOR,URINE YELLOW (Yellow); GLUCOSE,URINE NEGATIVE (Negative); KETONES,URINE NEGATIVE (Negative); LEUKOCYTE ESTERASE,URINE NEGATIVE (Negative); NITRITE,URINE NEGATIVE (Negative); OCCULT BLOOD,URINE NEGATIVE (Negative); PH,URINE 6.5 (5.0-8.0); PROTEIN,URINE NEGATIVE (Negative); UROBILINOGEN,URINE 0.2 (0.2-1.0)
[2024-05-04] MEDS ORDERED: Naloxone 0.4 MG/ML SDV IVPUSH PRN (12:44)
[2024-05-04] MEDS ORDERED: Midazolam 1 MG/ML 2 ML SDV ONE (14:24)
[2024-05-04] MEDS ORDERED: Propofol 200 MG/20 ML SDV ONE (14:24)
[2024-05-04] MEDS ORDERED: Lidocaine 1% 5 ML VIAL ONE (14:25)
[2024-05-04] MEDS ORDERED: fentaNYL 250 MCG/5 ML SDV ONE (14:25)
[2024-05-04] MEDS ORDERED: Rocuronium 50 MG/5 ML Vial ONE (14:25)
[2024-05-04] MEDS ORDERED: Dexamethasone 4 MG/ML 5 ML MDV ONE (14:29)
[2024-05-04] MEDS ORDERED: Ondansetron 4 MG/2 ML SDV ONE (14:29)
[2024-05-04] MEDS ORDERED: Lactated Ringers 1,000 ML IV ONE (14:43)
[2024-05-04] MEDS: HYDROmorphone 1 MG/ML Syringe IVPUSH ONE (15:04)
[2024-05-04] MEDS: Sodium Chloride 0.9% 1,000 ML IV ONE (15:18)
[2024-05-04] MEDS ORDERED: Neostigmine Methylsulfate 10 MG/10 ML MDV ONE (15:50)
[2024-05-04] MEDS ORDERED: Glycopyrrolate 0.2 MG/ML 2 ML SDV ONE (15:50)
[2024-05-04] MEDS ORDERED: Ketorolac 30 MG/ML SDV ONE (15:50)
[2024-05-04] MEDS: Bupivacaine 0.5% 30 ML SDV ONE (16:37)
[2024-05-04] MEDS ORDERED: HYDROmorphone 0.5 MG/0.5 ML Syringe IVPUSH PRN (17:36)
[2024-05-04] MEDS ORDERED: Ondansetron 4 MG/2 ML SDV IVPUSH PRN (17:36)
[2024-05-04] MEDS: fentaNYL 100 MCG/2 ML SDV IVPUSH PRN (17:59)
[2024-05-04] MEDS: oxyCODONE 5 MG Tab PO ONE (18:30)
[2024-05-04 18:54] VITALS: BP 131/72; PULSE 77
== END 2024-05-04 18:50 ==
LOC: JD.ED 08:28 → JD.SDS 14:42
PROVIDERS: ATTEND Obstetrics & Gynecology
DX: N83.12 Corpus luteum cyst of left ovary (principal); N83.02 Follicular cyst of left ovary; N83.201 Unspecified ovarian cyst, right side; K21.9 Gastro-esophageal reflux disease without esophagitis; F32.A Depression, unspecified; F41.9 Anxiety disorder, unspecified; F17.210 Nicotine dependence, cigarettes, uncomplicated; Z79.899 Other long term (current) drug therapy; Z88.0 Allergy status to penicillin; Z91.048 Other nonmedicinal substance allergy status
CPT/HCPCS: 36415; 56605; 58661; 74177; 76856; 80053; 81003; 83690; 85025; A9270; J0665; J1100; J1171; J1885; J2250; J2270; J2405; J2704; J2710; J3010; J3490; J7030; J7120; Q9967; 00840; 51702; 96361; 96374; 96375; 96376; 99285-25